=== PATIENT | male | born 1940 | race American Indian/Alaskan Native ===

== ENCOUNTER 2019-05-23 11:14 | Day surgery (SDC) | payer MEDICARE, OTHER, SELFPAY ==
[2019-05-23 12:11] VITALS: BP 152/75; RESP 71; TEMP 36.2; O2SAT 16; BMI 32.8
--- NOTE | 2019-05-23 12:36 | PM.PREOP ---
Pre-operative Note Interval Note History & Physical reviewed/Exam performed by Physician: No Changes to H&P: No
--- NOTE | 2019-05-23 12:36 | PM.OP.1 ---
Operative Date/Time/Diagnoses Date of procedure: 05/23/19 Pre-op diagnosis: Dermatochalasis both upper lids Post-op diagnosis: same Procedure & Clinicians Procedure: Blepharoplasty both upper lids Anesthesia Type: MAC +/- Operative Notes Procedure in detail: The patient was brought to the operating room. A marking pen and calipers were used to luba the excess skin on both upper lids. The patient underwent IV sedation. 5ml of a mixture of 1% lidocaine with epinephrine, bupivicane, and hylenx as injected into both upper lids. The patient was prepped and draped in sterile manor. A 15 blade was used to excise the skin/orbicularis layer from the right upper lid. The fat was allowed to prolapse and this was excised. Bleeding was controlled with cautery. A running and interupted 6-0 vicryl suture was used to close the incision. The same procedure was done on the left upper lid. The patient tolerated the procedure well and left in excellent condition. Complications: none
--- NOTE | 2019-05-23 12:41 | P.OP_ITS ---
Operative Date/Time/Diagnoses Date of procedure: 05/23/19 Pre-op diagnosis: Dermatochalasis both upper lids Post-op diagnosis: same Procedure & Clinicians Procedure: Blepharoplasty both upper lids Anesthesia Type: MAC +/- Operative Notes Procedure in detail: The patient was brought to the operating room. A marking pen and calipers were used to luba the excess skin on both upper lids. The patient underwent IV sedation. 5ml of a mixture of 1% lidocaine with epinephrine, bupivicane, and hylenx as injected into both upper lids. The pat ient was prepped and draped in sterile manor. A 15 blade was used to excise the skin/orbicularis layer from the right upper lid. The fat was allowed to prolapse and this was excised. Bleeding was controlled with cautery. A running and interupted 6-0 vicryl suture was used to close the incision. The same procedure was done on the left upper lid. The patient tolerated the procedure well and left in excellent condition. Complications: none
--- NOTE | 2019-05-23 13:09 | SUR.OPER ---
Supine on eye stretcher, head on extension cradle. Arms tucked at sides. Pillow under knees.
[2019-05-23] MEDS: BUPIVACAINE 0.5% (PF) 5 ML, LIDOCAINE 1% W/EPI 5 ML, HYALURONIDASE 150 UNIT INJ (13:13)
[2019-05-23] MEDS: NEOMYCIN/POLY/BACITRACIN 3.5 GM OPHTH OINT 1 APPLIC EYE-BOTH (13:14)
[2019-05-23 13:35] VITALS: BP 149/74; PULSE 69; RESP 16; TEMP 36.4; O2SAT 95
== END 2019-05-23 14:05 | disposition home or self-care (01) ==
PROVIDERS: PCP Family Medicine; Visit Provider Ophthalmology
PROC: (CPT 15823; principal; 2019-05-23 13:15)
DX: H02.834 Dermatochalasis of left upper eyelid (principal); H02.831 Dermatochalasis of right upper eyelid
CPT/HCPCS: 15823; J3010; J3470

== ENCOUNTER → 2019-08-01 15:03 | Outpatient (CLI) | payer MEDICARE, OTHER, SELFPAY ==
--- NOTE | 2019-08-01 | DI.RAD.S_ITS ---
PROCEDURE: XR SHOULDER LT MIN 2V INDICATIONS: Impingement syndrome of left shoulder TECHNIQUE: 3 views of the shoulder were acquired. COMPARISON: [facility], , CHEST 2 VIEW, 08/06/2017, 21:48. [facility], , CHEST 2 VIEW, 02/01/2018, 10:54. FINDINGS: Bones: Chronic left clavicle fracture. No acute fracture. Moderate AC joint degeneration. Glenohumeral degenerative changes also seen. Soft tissues: No suspicious soft tissue calcifications. IMPRESSION: Moderate AC joint degeneration which is likely progressed since 08/06/17. Glenohumeral osteoarthritis. Dictated by: Aram Fenton M.D. on 08/01/2019 at 16:10 Approved by: Aram Fenton M.D. on 08/01/2019 at 16:12
== END ==
PROVIDERS: PCP Family Medicine; Visit Provider Family Medicine
DX: M75.42 Impingement syndrome of left shoulder (principal); M19.012 Primary osteoarthritis, left shoulder
CPT/HCPCS: 73030

== ENCOUNTER → 2019-08-28 12:35 | Outpatient (CLI) | payer MEDICARE, OTHER, SELFPAY ==
--- NOTE | 2019-08-28 | DI.US.S_ITS ---
ULTRASOUND OF RIGHT BREAST: 08/28/2019 CLINICAL: Palpable right breast lump. No prior exams were available for comparison. Real-time ultrasound of the right breast was performed. Bowen scale images of the real-time examination were reviewed. No significant abnormalities were seen sonographically in the right breast. Specifically, no finding to correspond to the patient's palpable abnormality. IMPRESSION: INCOMPLETE: NEEDS ADDITIONAL IMAGING EVALUATION There is no abnormality seen in the right breast to correspond with the palpable abnormality at 1 o'clock, however, additional imaging with mammography is recommended. Findings and recommendations were conveyed to the patient at time of exam. This exam was interpreted at Station ID: [id number]. Electronically Signed By: Daniella strauss/:08/28/2019 13:09:21 letter sent: Additional Imaging Needed Ultrasound BI-RADS: 0 Indeterminate
== END ==
PROVIDERS: PCP Family Medicine; Visit Provider Family Medicine
DX: R22.2 Localized swelling, mass and lump, trunk (principal)
CPT/HCPCS: 76642

== ENCOUNTER → 2019-09-04 08:16 | Outpatient (CLI) | payer MEDICARE, OTHER, SELFPAY ==
--- NOTE | 2019-09-04 | DI.MG.S_ITS ---
MALE BILATERAL DIGITAL DIAGNOSTIC MAMMOGRAM 3D/2D: 09/04/2019 CLINICAL: Right breast lump. Comparison is made to exam dated: 08/28/2019 [facility]. There are benign normal lymph nodes in the right axilla. No significant masses, calcifications, or other findings are seen in either breast. IMPRESSION: There is no mammographic evidence of malignancy. Recent ultrasound dated 08/28/19 showed no sonographic abnormalities in the palpable area of concern. There is no abnormality seen in the right breast to correspond with the area of clinical concern and palpable abnormality indicated by triangular marker. Recommend clinical follow up for continued symptomatology. This exam was interpreted at Station ID: [id number]. NOTE: For mammograms, a report in lay terms will be sent to the patient. Approximately 15% of breast malignancies will not be visualized mammographically. In the management of a palpable breast mass, a negative mammogram must not discourage biopsy of a clinically suspicious lesion. Electronically Signed By: Gustavo Johnson M.D. aty/:09/04/2019 09:23:28 ACR BI-RADS Category 2: Benign Finding(s) [id number]
== END ==
PROVIDERS: PCP Family Medicine; Visit Provider Family Medicine
DX: N63.13 Unspecified lump in the right breast, lower outer quadrant (principal)
CPT/HCPCS: 77066; G0279

== ENCOUNTER → 2019-09-08 10:18 | Outpatient (CLI) | payer MEDICARE, OTHER, SELFPAY ==
--- NOTE | 2019-09-08 | DI.RAD.S_ITS ---
PROCEDURE: FL BARIUM SWALLOW INDICATIONS: COPD COMPARISON: [facility], CR, XR SHOULDER LT MIN 2V, 08/01/2019, 15:16. [facility], CR, CHEST 2 VIEW, 02/01/2018, 10:54. [facility], CT, ABDOMEN/PELVIS WITH CONTRAST, 03/03/2017, 10:19. [facility], RF, BARIUM SWALLOW, 08/27/2017, 13:41. FINDINGS: Function: There is normal esophageal peristalsis. No directly visualized gastroesophageal reflux on this exam. There is normal transit of a calibrated barium tablet through the esophagus into the stomach. Morphology: Air-contrast images demonstrate normal mucosal morphology. 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 Single contrast views show no other esophageal strictures, extrinsic mass effects, or diverticula. There is a possible small/minimal hiatal hernia. Limited images of the stomach demonstrate an otherwise unremarkable appearance. Surgical clips project over the upper abdomen. IMPRESSION: 1. 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 However, no direct gastroesophageal reflux was visualized on the current exam. Clinical correlation suggested. 2. Possible small/minimal hiatal hernia. Dictated by: Zain Ramírez M.D. on 09/08/2019 at 15:15 Approved by: Zain Ramírez M.D. on 09/08/2019 at 15:34
--- NOTE | 2019-09-08 | DI.RAD.S_ITS ---
PROCEDURE: XR CERVICAL SPINE 2V OR 3V INDICATIONS: OROPHARYNGEAL TECHNIQUE: 3 view(s) of the cervical spine were acquired. COMPARISON: None. FINDINGS: Bones: No fractures or dislocations to the C6-7 level. The lateral masses of C1 appear intact on the odontoid view. No suspicious bony lesions. There is straightening of normal cervical curvature. Moderate disc space narrowing is present C5-6. Soft tissues: No prevertebral soft tissue swelling. IMPRESSION: Degenerative changes with nonvisualization of the lower cervical spine. Dictated by: Sanaz Sierra M.D. on 09/08/2019 at 16:12 Approved by: Sanaz Sierra M.D. on 09/08/2019 at 16:13
--- NOTE | 2019-09-12 15:28 | P.PFT.S_ITS ---
Pulmonary Function Test Referral & Results Date Patient Seen: 09/08/19 Requesting provider: Kelli Valentine Indication: COPD Results: The spirometry demonstrates an FVC of 4.10 L which is 99% of predicted. The FEV1 was measured at 2.63 L which is 89% of predicted. The FEV1/FVC ratio was 60 for which is 89% of predicted. Following the administration of bronchodilator there was no appreciable change. Lung volumes show an SVC of 4.26 L which is 94% of predicted. The diffusing capacity was measured at 26.15 which is 79% of predicted. The maximum voluntary ventilation was normal Interpretation: This study demonstrates very mild obstructive lung disease based on slight reduction FEV1 and shape a flow volume loop. There is no evidence of sign ificant benefit following bronchodilator There also may be a mild reduction in diffusing capacity Compared to PFTs performed in September 2017, current study is essentially unchanged
== END ==
PROVIDERS: PCP Family Medicine; Visit Provider Family Medicine
DX: J41.0 Simple chronic bronchitis (principal); R13.12 Dysphagia, oropharyngeal phase
CPT/HCPCS: 72040; 74220; 94060; 94726; 94729

== ENCOUNTER → 2020-07-30 09:14 | Outpatient (CLI) | payer MEDICARE, OTHER, SELFPAY ==
--- NOTE | 2020-07-30 | DI.ECHO.S_ITS ---
[place] +---------+ [facility] +---------+ : : [address] : : : : [id number] : : : : Phone: [phone]+ Echocardiogram Report + + :Name: YAZMIN RUIZ Study Date: 07/30/2020 Height: 71 in : :[facility] Weight: 231 lb : : Gender: Male BSA: 2.2 m2 : :: 1940 Age: 80 yrs BP: 176/85 mmHg: :Reason For Study: SHORTNESS OF BREATH : :Ordering Physician: BOB, : :SAKINA Performed By: Gunjan Wright : :Referring: SAKINA ROJAS : + + Interpretation Summary 1) Normal left ventricular thickness, size, wall motion, and systolic function (EF 60-65%). 2) The right ventricle is normal in size and function. 3) Diastolic parameters suggest a pseudonormalization pattern, consistent with probable elevated filling pressures. 4) There is mild mitral regurgitation. 5) There is mild aortic regurgitation. 6) Pulmonary artery pressures cannot be estimated because of the lack of a measurable TR jet velocity. 7) Hypertension present during the study (BP 176/85mmHg). 8) No prior Echo available for comparison. Procedure: A two-dimensional transthoracic echocardiogram with color flow and Doppler was performed. The study quality was technically adequate. The patient had an echocardiogram, but there is no comparison study available. The patient was in sinus rhythm with heart rates between 58-63 bpm during the exam. Left Ventricle: The left ventricle is normal in size and wall thickness. The ejection fraction is estimated to be 60-65%. Left ventricular systolic function is normal without focal wall motion abnormalities. Diastolic parameters suggest a pseudonormalization pattern, consistent with probable elevated filling pressures. Right Ventricle: The right ventricle is normal in size and function. Atria: The left atrium is moderately dilated. Right atrial size is normal. There is no Doppler evidence for an interatrial shunt. Mitral Valve: The mitral valve leaflets appear mildly thickened, but open well. There is mild mitral regurgitation. There are multiple regurgitant jets present. Aortic Valve: The aortic valve is trileaflet. The aortic valve opens well. There is no aortic valve stenosis. There is mild aortic regurgitation. Tricuspid Valve: The tricuspid valve is normal in structure and function. There is trace tricuspid regurgitation. Pulmonary artery pressures cannot be estimated because of the lack of a measurable TR jet velocity. Pulmonic Valve: The pulmonic valve is not well seen, but is grossly normal. There is moderate pulmonic regurgitation. Great Vessels: The aortic root is normal size. The ascending aorta is at the upper limits of normal in size. The IVC is of normal diameter and collapses greater than 50% with a sniff. This suggests a low right atrial pressure of 3 mm Hg. Pericardium/ Pleura There is no pericardial effusion. There is no pleural effusion. MMode/2D Measurements & Calculations LVIDd: 5.3 cm LVOT diam: 2.3 cm LVIDs: 3.4 cm Ao root diam: 2.9 cm FS: 35.6 % asc Aorta Diam: 3.5 cm IVSd: 0.88 cm Ao Arch Diam (Prox Trans): 3.7 cm LVPWd: 1.0 cm LV maldonado. diameter/BSA (cm/m^2): 2.4 LV sys. diameter/BSA (cm/m^2): 1.5 LA A2 area: 29.5 cm2 RA long axis: 5.7 cm LA A4 area: 23.7 cm2 RA area: 21.3 cm2 LA length (vol): 5.8 cm RA vol: 66.8 ml LA vol: 102.8 ml RA : 29.8 ml/m2 LA vol index: 45.9 ml/m2 IVC diam: 0.84 cm RVD1 (basal): 3.8 cm TAPSE: 2.2 cm Doppler Measurements & Calculations Ao V2 max: 123.4 cm/sec LVOT Max Elgin: 73.8 cm/sec Ao V2 mean: 85.9 cm/sec LV V1 max P.2 mmHg Ao max P.1 mmHg LV V1 VTI: 18.1 cm Ao mean P.3 mmHg EMMA(I,D): 2.9 cm2 Ao V2 VTI: 27.1 cm EMMA(V,D): 2.5 cm2 sev ratio: 0.67 EMMA indexed to BSA (cm^2/m^2): 1.3 AI P1/2t: 691.0 msec AI dec slope: 148.7 cm/sec2 MV E max elgin: 86.0 cm/sec PA V2 max: 70.5 cm/sec MV A max elgin: 111.3 cm/sec PA V2 mean: 44.2 cm/sec MV E/A: 0.77 PA mean P.94 mmHg Med Peak E' Elgin: 4.6 cm/sec PA pr(Accel): 25.9 mmHg E/E' med: 18.7 Lat Peak E' Elgin: 7.6 cm/sec E/E' lat: 11.3 E/e' average: 15.0 MV dec time: 0.32 sec SV(LVOT): 77.3 ml Reading Physician:05:44 PM
== END ==
PROVIDERS: PCP Family Medicine; Referring Provider Family Medicine; Visit Provider Family Medicine
DX: I08.0 Rheumatic disorders of both mitral and aortic valves (principal); R06.02 Shortness of breath
CPT/HCPCS: 93306

== ENCOUNTER → 2020-08-17 09:03 | Outpatient (CLI) | payer MEDICARE, OTHER, SELFPAY ==
[2020-08-17 10:44] LABS: Alanine Aminotransferase 22 IU/L (<50); Albumin 4.4 g/dL (3.5-5.0); Albumin Globulin Ratio 1.4 (1.0-2.8); Alkaline Phosphatase 133 U/L (38-126); Aspartate Aminotransferase 27 IU/L (17-59); BUN Creatinine Ratio 18.2 (6-22); Bilirubin Total 0.7 mg/dL (0.2-1.3); Blood Urea Nitrogen 18 mg/dL (9-20); Calcium 8.8 mg/dL (8.4-10.2); Carbon Dioxide 30 mmol/L (22-32); Chloride 108 mmol/L (98-107); Cholesterol 102 mg/dL (140-199); Estimated Glomerular Filt Rate > 60.0 mL/min (>60); Globulin 3.2 g/dL (1.7-4.1); Glucose 112 mg/dL (80-110); HDL Cholesterol 38 mg/dL (40-60); HEMOLYSIS < 15 (0-50); LDL Cholesterol Calculated 44 mg/dL (<100); Potassium 4.1 mmol/L (3.4-5.1); Sodium 142 mmol/L (137-145); Total Protein 7.6 g/dL (6.3-8.2); Triglycerides 99 mg/dL (35-150)
[2020-08-17 11:20] LABS: Thyroid Stimulating Hormone 1.05 uIU/mL (0.47-4.68)
== END ==
PROVIDERS: PCP Family Medicine; Referring Provider Nurse Practitioner; Visit Provider Nurse Practitioner
DX: R00.2 Palpitations (principal); R07.89 Other chest pain; R06.02 Shortness of breath
CPT/HCPCS: 36415; 80053; 80061; 84443

== ENCOUNTER → 2020-08-25 09:12 | Outpatient (CLI) | payer MEDICARE, OTHER, SELFPAY ==
[2020-08-26 12:35] LABS: COVID19 Sendout Not Detected (Not Detect)
== END ==
PROVIDERS: PCP Family Medicine; Visit Provider Physician Assistant
DX: Z11.59 Encounter for screening for other viral diseases (principal)
CPT/HCPCS: 87635

== ENCOUNTER → 2020-08-28 07:25 | Outpatient (CLI) | payer MEDICARE, OTHER, SELFPAY ==
--- NOTE | 2020-08-28 | DI.NM.S_ITS ---
PROCEDURE: NM JENS PERF SPECT REST & STR Rest and pharmacological stress myocardial perfusion SPECT with gated imaging and ejection fraction RADIOPHARMACEUTICAL: 15.2 mCi Tc-99m tetrafosmin IV at rest and 26.4 mCi Tc-99m tetrafosmin IV at peak effect of pharmacological stress. [id number] was performed. INDICATIONS: Palpitations TECHNIQUE: Radiopharmaceutical was injected at peak stress test, and also at rest. SPECT images were obtained. SPECT myocardial perfusion images were displayed in short axis, horizontal long axis, and vertical long axis views. Gated images were reviewed using OnForce software. COMPARISON: None. CARDIAC STRESS: Patient exercised for 6 minutes and 12 seconds, reaching 4.6 METs. Since only 79% max predicted heart rate was reached, study was switched to pharmaceutical stress. A pharmacologic stress test was performed under the supervision of an attending staff, using an infusion of lexiscan 0.4mg IV X1. Hemodynamic data: There is normal blood pressure and heart rate response to pharmacologic stress. Symptoms: The patient denied anginal chest pain. Aminophylline: none EKG: Resting ECG shows sinus rhythm with RBBB. No ST-T changes to suggest ischemia. Occasoinal PVCs with exercise. FINDINGS: Raw data: There is good myocardial uptake of radiotracer. No significant motion artifacts. Kytf-lq-arbgt ratio is 0.31 (normal is less than 0.38 for tetrafosmin tracer). Left ventricle function: Gated images demonstrate normal left ventricular wall thickening. No segmental wall motion abnormalities. No transient ischemic dilation; TID is 0.91 (normal less than 1.3). Left ventricle resting end diastolic volume is 126 mL. Left ventricle stress ejection fraction is 63%; normal range is above 45%. Myocardial perfusion: There is severely intense defect in the inferior wall at rest that improves with stress supine images and further improves with stress prone imaging, suggesting artifact than true prior infarct or ischemia. IMPRESSION: Low risk, probably normal pharmaceutical nuclear stress test. 1) No perfusion evidence of ischemia. There is severely intense defect in the inferior wall at rest that improves with stress supine images and further improves with stress prone imaging, suggesting artifact than true prior infarct. 2) Normal left ventricular size, wall motion, and systolic function (EF post stress 63%). 3) No ECG evidence of ischemia. 4) No angina during the study. 5) Reduced exercise tolerance (4.6 METs, SONIA +22%). Since only 79% of max predicted heart rate was achieved, study was switched to pharmaceutical nuclear stress test. 6) No prior nuclear stress test available for comparison. Dictated by: Joana Castellano MD on 08/28/2020 at 17:14 Approved by: Joana Castellano MD on 08/28/2020 at 17:19
--- NOTE | 2020-08-28 15:15 | PM.TREADMILL ---
Cardiac Stress Test Report Referral & Results Date Patient Seen: 08/28/20 Time Patient Seen: 15:15 Requesting provider: Koko Madrigal Indication: palpitations Rest ECG: sinus rhythm with rbbb Procedure Note: Standard anup protocol, 3:34, 4.6 METS Reduced exercise capacity, SONIA, +22% Normal hemodynamic response to exercise No chest pain or angina symptoms. Test changed to Lexiscan due to dyspnea and failure to achieve target HR After Lexiscan injection had minimal dyspnea; no chest discomfort No significant ST changes on EKG after Lexsican injection; occasional PVCs Impression: normal lexiscan stress test Nuclear images pending Please note: Actual ECG tracings can be found in the PACS system.
== END ==
PROVIDERS: PCP Family Medicine; Referring Provider Family Medicine; Visit Provider Nurse Practitioner
DX: R00.2 Palpitations (principal); R07.89 Other chest pain
CPT/HCPCS: 78452; 93017; A9502; J2785

== ENCOUNTER → 2020-12-10 10:28 | Outpatient (CLI) | payer MEDICARE, OTHER, SELFPAY ==
--- NOTE | 2020-12-10 10:32 | DI.RAD.S_ITS ---
PROCEDURE: XR HIP W PEL IF DONE RT 2V INDICATIONS: OSTEOPOROSIS TECHNIQUE: AP pelvis with lateral view(s) of the right hip(s). COMPARISON: None. FINDINGS: Bones: No fractures or dislocations. Pelvic ring appears intact. No suspicious bony lesions. Moderate hip and sacroiliac joint degeneration is bilaterally. There is ankylosis of the right sacroiliac joint. Soft tissues: The visualized bowel gas pattern is normal. No suspicious soft tissue calcifications. IMPRESSION: 1. Moderate hip and sacroiliac joint degeneration bilaterally. 2. Right SI joint ankylosis. Dictated by: Luzmaria García M.D. on 12/10/2020 at 12:46 Approved by: Luzmaria García M.D. on 12/10/2020 at 12:49
--- NOTE | 2020-12-10 10:32 | DI.RAD.S_ITS ---
PROCEDURE: XR SHOULDER LT MIN 2V INDICATIONS: OSTEOPOROSIS TECHNIQUE: 3 views of the shoulder were acquired. COMPARISON: [facility], CR, XR SHOULDER LT MIN 2V, 08/01/2019, 15:16. FINDINGS: Bones: No acute fractures or dislocations. Old clavicular shaft fracture with deformity. No suspicious bony lesions. Mild osteoarthritic changes at the acromioclavicular joint and glenohumeral joint. Visualized ribs appear intact. Soft tissues: No suspicious soft tissue calcifications. IMPRESSION: 1. Old left clavicular shaft fracture. 2. Mild osteoarthritis. Dictated by: Luzmaria García M.D. on 12/10/2020 at 12:29 Approved by: Luzmaria García M.D. on 12/10/2020 at 12:46
== END ==
PROVIDERS: PCP Family Medicine; Referring Provider Family Medicine; Visit Provider Family Medicine
DX: M19.012 Primary osteoarthritis, left shoulder (principal); M81.0 Age-related osteoporosis without current pathological fracture; M16.0 Bilateral primary osteoarthritis of hip; M46.1 Sacroiliitis, not elsewhere classified; M43.28 Fusion of spine, sacral and sacrococcygeal region
CPT/HCPCS: 73030; 73502

== ENCOUNTER → 2021-09-11 16:18 | Outpatient (CLI) | payer MEDICARE, OTHER, SELFPAY ==
[2021-09-11 17:01] LABS: COVID19 -Nasal RAPID Negative (Negative)
== END ==
PROVIDERS: PCP Family Medicine; Referring Provider Internal Medicine; Visit Provider Internal Medicine
DX: Z20.822 Contact with and (suspected) exposure to COVID-19 (principal)
CPT/HCPCS: 87635; C9803

== ENCOUNTER → 2021-09-12 12:48 | Outpatient (CLI) | payer MEDICARE, OTHER, SELFPAY ==
--- NOTE | 2021-09-17 09:18 | PM.PFT.1 ---
Pulmonary Function Test Referral & Results Date Patient Seen: 09/12/21 Requesting provider: Kelli Valentine Results: The spirometry demonstrates an FVC of 4.16 L which is 102% of predicted. The FEV1 was measured at 2.41 L which is 83% of predicted. The FEV1/FVC ratio was 58 which is 81% of predicted. Lung volumes show an SVC of 4.21 L which is 94% of predicted. The diffusing capacity was measured at 23.50 which is 71% of predicted. No hemoglobin value was provided, so no correction for potential anemia could be made, if appropriate. The maximum voluntary ventilation was reduced Interpretation: This study demonstrates perhaps mild obstructive lung disease based on minimal reduction FEV1 and FEV1/FVC ratio. There is also mild reduction diffusing capacity suggesting element of disease at the capillary alveolar level, unless patient is anemic as above Clinical correlation suggested
== END ==
PROVIDERS: PCP Family Medicine; Referring Provider Family Medicine; Visit Provider Family Medicine
DX: J45.20 Mild intermittent asthma, uncomplicated (principal)
CPT/HCPCS: 94010; 94726; 94729

== ENCOUNTER 2021-12-02 06:40 | Emergency (ER) | payer MEDICARE, OTHER, SELFPAY ==
--- NOTE | 2021-12-02 06:41 | DI.RAD.S_ITS ---
PROCEDURE: XR CHEST 1V INDICATIONS: SOB, COVID+ TECHNIQUE: One view of the chest was acquired. COMPARISON: None. FINDINGS: Surgical changes and devices: None. Lungs and pleura: Mildly increased interstitial markings in the central/perihilar lungs. No acute airspace opacity. No pleural effusions or pneumothorax. Mediastinum: Mediastinal contours appear normal. Heart size is normal. Bones and chest wall: No suspicious bony lesions. Overlying soft tissues appear unremarkable. IMPRESSION: Mildly increased interstitial markings in the central/perihilar lungs. This is a nonspecific finding which can be seen in the setting of viral infection or pulmonary edema. Dictated by: Kory Leary M.D. on 12/02/2021 at 8:08 Approved by: Kory Leary M.D. on 12/02/2021 at 8:08
[2021-12-02 06:45] VITALS: BP 149/67; PULSE 89; RESP 18; TEMP 37.2; O2SAT 94; BMI 32.8
[2021-12-02 06:57] VITALS: PULSE 86; O2SAT 93
[2021-12-02 07:00] VITALS: BP 134/60; PULSE 86; O2SAT 92
[2021-12-02 07:30] VITALS: BP 135/63; PULSE 85; O2SAT 94
[2021-12-02 08:00] VITALS: BP 130/63; PULSE 85; O2SAT 94
--- NOTE | 2021-12-02 08:13 | ED.GENADULT ---
HPI - General Adult General Chief complaint: Shortness of Breath/Dyspnea Stated complaint: + Covid / Shortness of breath Time Seen by Provider: 12/02/21 06:41 Source: patient Mode of arrival: EMS History of Present Illness HPI narrative: Patient is an 81-year-old male. 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 No use of oxygen at night. Has had 2 Moderna vaccines and also a booster. His booster was a couple months ago. He states that last he started having flu-like symptoms. He was tested on Wednesday for COVID and was negative. He continued to have symptoms and was worsening somewhat so he tested again yesterday afternoon and a was positive. Last evening he was having fevers and chills and headache and flu-like symptoms so he decided to come to the emergency department for evaluation. Related Data Home Medications Medication Instructions Recorded Confirmed acetaminophen 650 mg 650 mg PO BIDP PRN #0 tab 08/10/16 05/23/19 tablet,extended release aspirin 81 mg tablet,delayed 81 mg PO QDAY #30 tab 08/10/16 05/23/19 release vitamins A,C,L-dleq-yuknqf 14,320 1 sgl PO EVERY OTHER DAY #0 08/12/16 unit-226 mg-200 unit capsule (PreserVision AREDS) fluticasone propionate 50 2 spray INTRANASAL QDAY #0 04/13/17 05/23/19 mcg/actuation nasal spray,suspension loratadine 10 mg tablet 10 mg PO QDAY #0 04/13/17 05/23/19 simvastatin 20 mg tablet 20 mg PO HS #0 04/13/17 05/23/19 Vitamin D2 05/23/19 omeprazole 20 mg capsule,delayed 20 mg PO DAILY 05/23/19 05/23/19 release Allergies Allergy/AdvReac Type Severity Reaction Status Date / Time ketchup Allergy Mild Itchy Verified 05/23/19 12:00 peanut Allergy Mild Itchy Verified 05/23/19 12:00 Penicillins [PENICILLINS] Allergy Unknown ITCHY DRY Verified 05/23/19 12:00 RECTUM Sulfa (Sulfonamide Allergy Unknown ITCHY, DRY Verified 05/23/19 12:00 Antibiotics) RECTUM [SULFA (SULFONAMIDE ANTIBIOTICS)] EGGS Allergy Intermediate ITCHY SKIN Uncoded 04/11/18 12:52 canned foods Allergy Mild Itchy Uncoded 05/23/19 12:00 tape Allergy Itchy, red Uncoded 05/23/19 12:00 Review of Systems Constitutional Constitutional: Reports body ache(s), Reports chills, Reports fatigue, Reports fever(s) and Reports lethargy Cardiovascular Cardiovascular: Denies chest pain Respiratory Respiratory: Reports cough Gastrointestinal Gastrointestinal: Reports system reviewed and no additional complaints, except as documented Integumentary/Breasts Skin/Breast: Reports system reviewed and no additional complaints, except as documented Neurologic Neurologic: Reports system reviewed and no additional complaints, except as documented Endocrine Endocrine: Reports fatigue Hematologic/Lymphatic On Anticoagulants: No Allergic/Immunologic Allergic/Immunologic: Reports system reviewed and no additional complaints, except as documented Patient History Medical History Allergy desensitization therapy Arthritis Cataract fragments in right eye following surgery Cyst (~03/2019) Gastric reflux History of gallstones History of headache (~2017) History of shingles Irregular heart beat Legally blind in left eye, as defined in [place] Macular degeneration Seasonal allergies Surgical History (Updated 05/23/19 @ 12:30 by Maribel Ford RN) H/O sinus surgery H/O umbilical hernia repair History of appendectomy History of eye surgery History of inguinal hernia repair, bilateral Social History household members: spouse Smoking Status: Former smoker Smoking Status: Former smoker Substance Use Type: does not use Exam Initial Vital Signs Initial Vital Signs: Vital Signs Temperature 98.9 F 12/02/21 06:45 Pulse Rate 89 12/02/21 06:45 Respiratory Rate 18 12/02/21 06:45 Blood Pressure 149/67 H 12/02/21 06:45 Pulse Oximetry 94 12/02/21 06:45 Const General: cooperative, comfortable and well developed Resp Effort & Inspection: normal respiratory effort Auscultation: clear to auscultation bilaterally Cardio Rate: regular rate Rhythm: regular rhythm Skin General: no rashes or lesions noted Neuro General: patient alert, patient awake and moves all extremities Extrem General: No pedal edema Psych Appearance: grossly normal and well kempt Course Orders Ordered: ED Orders 12/02/21 06:41 Chest [XR chest 1V] Stat Vital Signs Vital signs: Vital Signs - 8 hr 12/02/21 06:45 12/02/21 06:57 12/02/21 07:00 Temperature 98.9 F Pulse Rate 89 86 86 Respiratory Rate 18 Blood Pressure 149/67 H 134/60 Pulse Oximetry 94 93 92 12/02/21 07:30 12/02/21 08:00 Temperature Pulse Rate 85 85 Respiratory Rate Blood Pressure 135/63 130/63 Pulse Oximetry 94 94 Medical Decision Making Imaging Data Chest x-ray: Radiologist's Impression: [address] [address] XRay Report Signed Patient: Jatin Cruz MR#: [id number] : 1940 Acct:[id number] Age/Sex: 81 / M Date of Service: 12/02/21 Loc: ED Accession Number: [id number] ?? Procedure: XR chest 1V Ordering Provider: Elijah iL D.O. PROCEDURE:? XR CHEST 1V ? INDICATIONS:? SOB, COVID+ ? TECHNIQUE:? One view of the chest was acquired.? ? COMPARISON:? None. ? FINDINGS:? ? Surgical changes and devices:? None.? ? Lungs and pleura:? Mildly increased interstitial markings in the central/perihilar lungs. ?No acute airspace opacity.? No pleural effusions or pneumothorax.? ? Mediastinum:? Mediastinal contours appear normal.? Heart size is normal.? ? Bones and chest wall:? No suspicious bony lesions.? Overlying soft tissues appear unremarkable.? ? IMPRESSION:? Mildly increased interstitial markings in the central/perihilar lungs.? This is a nonspecific finding which can be seen in the setting of viral infection or pulmonary edema. ? ? Dictated by: Kory Leary M.D. on 12/02/2021 at 8:08 ? ? Approved by: Kory Leary M.D. on 12/02/2021 at 8:08? MDM Narrative Medical decision making narrative: Patient is not hypoxic. Not tachypneic. Not tachycardic. Has a clear lung exam. Is positive for COVID based on a test that was performed yesterday at an outside clinic. Patient has had 2 vaccines and a booster shot. Chest x-ray consistent with COVID-19. Patient not requiring oxygen. Provided reassurance to the patient. We did discuss Tylenol for fevers and body aches. Patient does not meet criteria for admission to the hospital today however he was given strict return precautions. He expressed understanding and agreement. Discharge Plan Departure Patient Disposition: Home Clinical Impression: COVID-19 Instructions: DI for COVID-19 (Suspected or Confirmed ) Activity Restrictions/Additional Instructions: I do recommend that you increase your fluid intake. Continue to take all of your medications as directed. Contact your primary doctor for follow-up and return to the emergency department for any new or worsening symptoms. Prescriptions: No Action aspirin 81 MG tablet,delayed release (DR/EC) 81 mg PO QDAY Qty: 30 0RF acetaminophen 650 MG tablet extended release 650 mg PO BIDP PRN (Reason: Pain) Qty: 0 0RF PreserVision AREDS 1 EACH capsule 1 sgl PO EVERY OTHER DAY Qty: 0 0RF loratadine 10 MG tablet 10 mg PO QDAY Qty: 0 0RF simvastatin 20 MG tablet 20 mg PO HS Qty: 0 0RF fluticasone propionate 16 GM spray,suspension 2 spray Intranasal QDAY Qty: 0 0RF omeprazole 20 mg Capsule,Delayed Release(Dr/Ec) 20 mg PO DAILY 0RF Vitamin D2 0RF Referrals: Kelli Valentine MD [Primary Care Provider] -
[2021-12-02 09:19] VITALS: BP 141/65; PULSE 74; RESP 17; O2SAT 95
== END 2021-12-02 09:21 | disposition home or self-care (01) ==
PROVIDERS: Emergency Provider Emergency Medicine; PCP Family Medicine
DX: U07.1 COVID-19 (principal)
CPT/HCPCS: 71045; 99281; 99283

== ENCOUNTER → 2022-01-01 12:47 | Outpatient (CLI) | payer MEDICARE, OTHER, SELFPAY ==
[2022-01-01 14:17] LABS: COVID-19 CEPHEID PCR (VTM/NP) Negative (Negative)
== END ==
PROVIDERS: PCP Family Medicine; Referring Provider Internal Medicine; Visit Provider Internal Medicine
DX: Z20.822 Contact with and (suspected) exposure to COVID-19 (principal)
CPT/HCPCS: C9803; U0003; U0005

== ENCOUNTER → 2022-01-02 12:45 | Outpatient (CLI) | payer MEDICARE, OTHER, SELFPAY ==
--- NOTE | 2022-01-07 09:14 | PM.PFT.1 ---
Pulmonary Function Test Referral & Results Date Patient Seen: 01/02/22 Requesting provider: Kelli Valentine Results: The spirometry demonstrates an FVC of 3.84 L which is 94% of predicted. The FEV1 was measured at 2.19 L which is 76% of predicted. The FEV1/FVC ratio was 57 which is 80% of predicted. Lung volumes show an SVC of 4.14 L which is 93% of predicted. The diffusing capacity was measured at 25.13 which is 76% of predicted. No hemoglobin value was provided, so no correction for potential anemia could be made, if appropriate. The maximum voluntary ventilation was reduced slightly Interpretation: This study demonstrates perhaps very mild obstructive lung disease based on minimal reduction FEV1 and borderline minimal reduction FEV1/FVC ratio. Lung volumes are normal Diffusing capacity is minimally reduced suggesting the possibility of disease at the capillary alveolar level Compared to PFTs performed in September 2021, current study is essentially unchanged
== END ==
PROVIDERS: PCP Family Medicine; Referring Provider Family Medicine; Visit Provider Family Medicine
DX: J44.9 Chronic obstructive pulmonary disease, unspecified (principal)
CPT/HCPCS: 94010; 94726; 94729

== ENCOUNTER 2022-05-07 14:15 | Outpatient (RCR) | payer MEDICARE, OTHER, SELFPAY | END 2022-05-07 16:15 | LOC: PUL 14:15 | PROVIDERS: PCP Family Medicine; Referring Provider Family Medicine; Visit Provider Family Medicine | DX: J44.9 Chronic obstructive pulmonary disease, unspecified (principal) | CPT/HCPCS: 94625; 94626 ==

== ENCOUNTER 2022-09-26 01:35 | Emergency (ER) | payer MEDICARE, OTHER, SELFPAY ==
[2022-09-26] VITALS (8 sets, daily range): BP systolic 132–165; BP diastolic 66–92; PULSE 85–91; RESP 16–28; TEMP 38.7; O2SAT 93–97; BMI 32.3
--- NOTE | 2022-09-26 01:42 | DI.RAD.S_ITS ---
PROCEDURE: XR CHEST 1V INDICATIONS: short of breath TECHNIQUE: One view of the chest was acquired. COMPARISON: [facility], CR, XR CHEST 1V, 12/02/2021, 7:34. FINDINGS: Surgical changes and devices: None. Lungs and pleura: There is hyperinflation of the lungs with flattening of the hemidiaphragms compatible with COPD. No acute consolidation. No pleural effusions or pneumothorax. Mediastinum: Mediastinal contours appear normal. Heart size is normal. Bones and chest wall: No suspicious bony lesions. Overlying soft tissues appear unremarkable. IMPRESSION: 1. No acute cardiopulmonary disease. 2. Findings compatible with COPD. Dictated by: French Morfin M.D. on 09/26/2022 at 2:13 Approved by: French Morfin M.D. on 09/26/2022 at 2:13
[2022-09-26 02:14] LABS: Alanine Aminotransferase 23 IU/L (<50); Albumin 4.1 g/dL (3.5-5.0); Albumin Globulin Ratio 1.2 (1.0-2.8); Alkaline Phosphatase 94 U/L (38-126); Aspartate Aminotransferase 25 IU/L (17-59); Bilirubin Total 0.7 mg/dL (0.2-1.3); Blood Urea Nitrogen 16 mg/dL (9-20); Calcium 7.8 mg/dL (8.4-10.2); Carbon Dioxide 22 mmol/L (22-32); Chloride 104 mmol/L (98-107); Creatine Kinase 88 U/L (55-170); Estimated Glomerular Filt Rate > 60 mL/min (>60); Globulin 3.4 g/dL (1.7-4.1); Glucose 155 mg/dL (80-110); HEMOLYSIS < 15 (0-50); Potassium 3.8 mmol/L (3.4-5.1); Sodium 137 mmol/L (137-145); Total Protein 7.5 g/dL (6.3-8.2)
[2022-09-26 02:15] LABS: Lactate (Lactic Acid) 1.1 mmol/L (0.7-2.1)
--- NOTE | 2022-09-26 02:18 | ED_ITS ---
HPI - Sepsis General Chief Complaint: Upper Respiratory Symptoms Mode of arrival: EMS Source: patient Evaluation Sepsis Screen: No Definite Risk Sepsis Infection Criteria Present: None Narrative: Patient is a 82-year-old male history of COPD, presenting today with body aches fevers and chills. He says ongoing for about a week but today got significantly worse. He overall does not feel good. He is currently febrile. He is having increasing shortness of breath a little bit of chest discomfort. He is coughing up sputum. Denies any abdominal pain but he does have some nausea. Review of Systems Review of Systems Narrative: GENERAL: See HPI HEENT: Denies sinus pain, ear pain, sore throat, difficulty swallowing, neck pain RESPIRATORY: See HPI CARDIOVASCULAR: Denies chest pain, palpitations, orthopnea, edema GASTROINTESTINAL: Denies nausea, vomiting, abdominal pain, diarrhea, co nstipation, melena. : Denies dysuria, frequency, incontinence, hematuria, urinary retention, flank pain. MUSCULOSKELETAL: Denies weakness, joint pain, or bony pain SKIN: No rash, no erythema, no pruritus NEUROLOGIC: Denies weakness, dizziness, headache, numbness, change in speech, confusion PSYCHIATRIC: No concerning psychosocial issues. 12 point review of systems is negative except for those stated above and HPI Patient History Medical History Allergy desensitization therapy Arthritis Cataract fragments in right eye following surgery Cyst (~03/2019) Gastric reflux History of gallstones History of headache (~2018) History of shingles Irregular heart beat Legally blind in left eye, as defined in [place] Macular degeneration Seasonal allergies Surgical History H/O sinus surgery H/O umbilical hernia repair History of appendectomy History of eye surgery History of inguinal hernia repair, bilateral Social History household members: spouse Smoking Status: Former smoker Smoking Status: Former smoker Substance Use Type: does not use Exam Initial Vital Signs Initial Vital Signs: Vital Signs Temperature 101.7 F H 09/26/22 01:41 Pulse Rate 90 09/26/22 01:41 Respiratory Rate 18 09/26/22 01:41 Blood Pressure 165/67 H 09/26/22 01:41 Pulse Oximetry 96 09/26/22 01:41 Oxygen Delivery Method 11/26/22 01:41 GENERAL: Alert 82-year-old male appears to not feel well warm to touch HEENT: Head atraumatic,EOMI, pupils reactive, face symmetric, moist mucous membranes CARDIOVASCULAR: Regular rate and rhythm without murmurs, rubs or gallops. RESPIRATORY: Decreased breath sounds bilaterally without wheezes rales or rhonchi able to speak in full sentences ABDOMEN: Soft, nontender. Normoactive bowel sounds all 4 quadrants. No g uarding or rebound. EXTREMITIES: Normal range of motion, no clubbing or edema. Neurovascularly inta ct NEUROLOGICAL: Alert and oriented x4.Normal gait and speech. SKIN: Warm, dry, no laceration, no petechiae, no rashes or lesions. Course Orders Ordered: ED Orders 09/26/22 01:42 XR chest 1V Stat EKG-12 Lead Stat 09/26/22 01:45 Covid-19 + FLU A/B + RSV - PCR Stat 09/26/22 01:52 Complete Blood Count AUTO DIFF Stat Comprehensive Metabolic Panel Stat Lactate (Lactic Acid) Stat NT-proBNP (BNP-Adult 18+) Stat Procalcitonin Stat Troponin & CK Cardiac Panel Stat 09/26/22 02:10 Blood Culture Stat Discontinued Medications Acetaminophen (Acetaminophen 325 Mg Tablet) 975 mg PO NOW ONE Stop: 09/26/22 02:15 Last Admin: 09/26/22 02:37 Dose: 975 mg Documented By: JACKELIN Albuterol/Ipratropium (Albuterol/Ipratropium 3 Ml Ampul) 3 ml INH NOW ONE Stop: 09/26/22 03:38 Last Admin: 09/26/22 03:52 Dose: 3 ml Documented By: SHAYLA Sodium Chloride (Normal Saline 0.9%) 1,000 mls @ 1,000 mls/hr IV BOLUS ONE Stop: 09/26/22 04:30 Last Admin: 09/26/22 03:53 Dose: 1,000 mls/hr Documented By: LYDIA Vital Signs Vital signs: Vital Signs - 8 hr 09/26/22 01:41 09/26/22 02:41 09/26/22 03:00 Temperature 101.7 F H Pulse Rate 90 86 85 Respiratory Rate 18 28 H 26 H Blood Pressure 165/67 H 156/69 H 145/66 H Pulse Oximetry 96 93 97 Oxygen Delivery Method Room Air Room Air Room Air Oxygen Flow Rate Fraction of Inspired Oxygen 09/26/22 03:53 09/26/22 03:30 09/26/22 04:00 Temperature Pulse Rate 87 86 86 Respiratory Rate 16 22 24 Blood Pressure 154/68 H 147/68 H Pulse Oximetry 96 97 97 Oxygen Delivery Method Room Air Room Air Room Air Oxygen Flow Rate 0 Fraction of Inspired Oxygen 21 09/26/22 04:30 09/26/22 05:00 Temperature Pulse Rate 90 91 H Respiratory Rate 24 20 Blood Pressure 161/69 H 132/92 H Pulse Oximetry 95 97 Oxygen Delivery Method Room Air Room Air Oxygen Flow Rate Fraction of Inspired Oxygen Sepsis Evaluation (ED) Triage Screening Sepsis Screen: No Definite Risk Level 1 - Infection Sepsis Infection Criteria Present: None Response It is my opinion that his patient have a likely infectious etiology for meeting sepsis criteria: Does Not Fluid calculation based on 30 mL/kg within 1hr of criteria: IBW used due to BMI>30 Antibiotics initiated within 1 hr of Sepis dx: No Tissue Perfusion Reassessed within 6 hrs of infusion start time: No MDM - Sepsis Lab Data Result diagrams: 09/26/22 01:52 09/26/22 01:52 Labs: Lab Results 09/26/22 09/26/22 09/26/22 Range/Units 01:45 01:52 01:52 WBC 8.3 (4.5-11.0) X10^3/uL RBC 4.70 (4.5-5.9) X10^6/uL Hgb 13.8 (13.5-17.5) g/dL Hct 40.1 L (41-53) % MCV 85.4 (80-100) fL MCH 29.3 (26-34) PG MCHC 34.3 (30-36) % RDW 14.5 (11.6-14.8) % Plt Count 144 L (150-400) X10^3/uL Neut % (Auto) 84.8 H (50-75) % Lymph % (Auto) 8.0 L (25-40) % [place] % (Auto) 6.4 (3-14) % Eos % (Auto) 0.4 L (2-4) % Baso % (Auto) 0.4 (0-2) % Neut # (Auto) 7000 (8238-3629) /uL Lymph # (Auto) 700 L (6668-8083) /uL [place] # (Auto) 500 (0-900) /uL Eos # (Auto) 0 (0-450) /uL Baso # (Auto) 0 (0-100) /uL Sodium 137 (137-145) mmol/L Potassium 3.8 (3.4-5.1) mmol/L Chloride 104 (98-107) mmol/L Carbon Dioxide 22 (22-32) mmol/L BUN 16 (9-20) mg/dL Creatinine 1.07 (0.66-1.25) mg/dL Estimated GFR > 60 (>60) mL/min BUN/Creatinine Ratio 15.0 (6-22) Glucose 155 H (80-110) mg/dL Lactate (0.7-2.1) mmol/L Calcium 7.8 L (8.4-10.2) mg/dL Total Bilirubin 0.7 (0.2-1.3) mg/dL AST 25 (17-59) IU/L ALT 23 (<50) IU/L Alkaline Phosphatase 94 (38-126) U/L Total Creatine Kinase 88 (55-170) U/L CK-MB (CK-2) TNP CK-MB (CK-2) Rel Index TNP Troponin I 0.013 (0.01-0.034) ng/mL NT-Pro-B Natriuret Pep 710 H (<450) pg/mL Total Protein 7.5 (6.3-8.2) g/dL Albumin 4.1 (3.5-5.0) g/dL Globulin 3.4 (1.7-4.1) g/dL Albumin/Globulin Ratio 1.2 (1.0-2.8) Procalcitonin 0.19 (<0.5) ng/mL SARS-CoV-2 (PCR) Negative (Negative) Influenza A (RT-PCR) Flu a positive H (NEGATIVE) Influenza B (RT-PCR) Flu b negative (NEGATIVE) RSV (PCR) Negative (Negative) 09/26/22 Range/Units 01:52 WBC (4.5-11.0) X10^3/uL RBC (4.5-5.9) X10^6/uL Hgb (13.5-17.5) g/dL Hct (41-53) % MCV (80-100) fL MCH (26-34) PG MCHC (30-36) % RDW (11.6-14.8) % Plt Count (150-400) X10^3/uL Neut % (Auto) (50-75) % Lymph % (Auto) (25-40) % [place] % (Auto) (3-14) % Eos % (Auto) (2-4) % Baso % (Auto) (0-2) % Neut # (Auto) (8089-9709) /uL Lymph # (Auto) (4965-0801) /uL [place] # (Auto) (0-900) /uL Eos # (Auto) (0-450) /uL Baso # (Auto) (0-100) /uL Sodium (137-145) mmol/L Potassium (3.4-5.1) mmol/L Chloride (98-107) mmol/L Carbon Dioxide (22-32) mmol/L BUN (9-20) mg/dL Creatinine (0.66-1.25) mg/dL Estimated GFR (>60) mL/min BUN/Creatinine Ratio (6-22) Glucose (80-110) mg/dL Lactate 1.1 (0.7-2.1) mmol/L Calcium (8.4-10.2) mg/dL Total Bilirubin (0.2-1.3) mg/dL AST (17-59) IU/L ALT (<50) IU/L Alkaline Phosphatase (38-126) U/L Total Creatine Kinase (55-170) U/L CK-MB (CK-2) CK-MB (CK-2) Rel Index Troponin I (0.01-0.034) ng/mL NT-Pro-B Natriuret Pep (<450) pg/mL Total Protein (6.3-8.2) g/dL Albumin (3.5-5.0) g/dL Globulin (1.7-4.1) g/dL Albumin/Globulin Ratio (1.0-2.8) Procalcitonin (<0.5) ng/mL SARS-CoV-2 (PCR) (Negative) Influenza A (RT-PCR) (NEGATIVE) Influenza B (RT-PCR) (NEGATIVE) RSV (PCR) (Negative) Imaging Data Chest x-ray: Radiologist's Impression: XRay Report Signed Patient: Jatin Cruz MR#: [id number] : 1940 Acct:[id number] Age/Sex: 82 / M Date of Service: 09/26/22 Loc: ED Accession Number: [id number] ?? Procedure: XR chest 1V Ordering Provider: Lorna Scruggs D.O. PROCEDURE:? XR CHEST 1V ? INDICATIONS:? short of breath ? TECHNIQUE:? One view of the chest was acquired.? ? COMPARISON:? [facility], , XR CHEST 1V, 12/02/2021, 7:34. ? FINDINGS:? ? Surgical changes and devices:? None.? ? Lungs and pleura:? There is hyperinflation of the lungs with flattening of the hemidiaphragms compatible with COPD.? No acute consolidation.? No pleural effusions or pneumothorax.? ? Mediastinum:? Mediastinal contours appear normal.? Heart size is normal.? ? Bones and chest wall:? No suspicious bony lesions.? Overlying soft tissues appear unremarkable.? ? IMPRESSION:? ? 1.? No acute cardiopulmonary disease. ? 2. Findings compatible with COPD. ? ? ? Dictated by: French Morfin M.D. on 09/26/2022 at 2:13 ? ? ECG Data Interpretation: Sinus rhythm rate 86 [place] interval 156 QRS [address] changes no T-wave inversions right bundle-branch block MDM Narrative Medical decision making narrative: Patient has a granddaughter at home who is diagnosed with influenza he also has influenza a. He is not hypoxic is or septic. Blood work is overall reassuring. He is given IV fluids and albuterol here in the ED. Feeling better. At this time does not meet any sort of admission criteria. Can go home with supportive care only. His heart rate is noted to be quite irregular on the monitor. He states that this is not abnormal for him. He denies any chest pain or palpitations. Discharge Plan Departure Patient Disposition: Home Clinical Impression: Influenza Instructions: DI for Influenza -- Adult Activity Restrictions/Additional Instructions: *You have been diagnosed with influenza A *What to do: At this time he of influenza a. Expect to have body aches fever and chills. Stay hydrated and treat her fever. *Continue to take medications as directed Tylenol 650 mg every 4-6 hours if needed for pain or fever Motrin 600 mg every 6 hours if needed for pain or fever *Follow up with your primary care provider in 2-3 days or call [phone] *Return to ER if you should have creasing shortness of breath, decreased oral intake or any new, worsening or concerning symptoms Prescriptions: No Action aspirin 81 MG tablet,delayed release (DR/EC) 81 mg PO QDAY Qty: 30 acetaminophen 650 MG tablet extended release 650 mg PO BIDP PRN (Reason: Pain) Qty: 0 PreserVision AREDS 1 EACH capsule 1 sgl PO EVERY OTHER DAY Qty: 0 loratadine 10 MG tablet 10 mg PO QDAY Qty: 0 omeprazole 20 mg Capsule,Delayed Release(Dr/Ec) 20 mg PO DAILY bisoprolol fumarate 5 mg tablet 2.5 mg PO DAILY sertraline 100 mg tablet 100 mg PO DAILY cholecalciferol (vitamin D3) 25 mcg (1,000 unit) capsule 25 mcg PO DAILY Referrals: Kelli Valentine MD [Primary Care Provider] - Visit Report Forms: Patient Portal/API
[2022-09-26 02:27] LABS: Add Manual Diff / Slide Review NO; Basophils Absolute Auto 0 /uL (0-100); Basophils Percent Auto 0.4 % (0-2); Eosinophils Absolute Auto 0 /uL (0-450); Eosinophils Percent Auto 0.4 % (2-4); Hematocrit 40.1 % (41-53); Hemoglobin 13.8 g/dL (13.5-17.5); Lymphocytes Absolute Auto 700 /uL (1100-4500); Mean Corpuscular HGB Conc 34.3 % (30-36); Mean Corpuscular Hemoglobin 29.3 PG (26-34); Mean Corpuscular Volume 85.4 fL (80-100); Monocytes Absolute Auto 500 /uL (0-900); Monocytes Percent Auto 6.4 % (3-14); NT-proBNP (BNP-Adult 18+) 710 pg/mL (<450); Neutrophils Absolute Auto 7000 /uL (1500-7000); Neutrophils Percent Auto 84.8 % (50-75); Platelet Count 144 X10^3/uL (150-400); Red Cell Distribution Width 14.5 % (11.6-14.8); Troponin I 0.013 ng/mL (0.01-0.034); White Blood Cell Count 8.3 X10^3/uL (4.5-11.0)
[2022-09-26 02:31] LABS: Procalcitonin 0.19 ng/mL (<0.5)
[2022-09-26] MEDS: ACETAMINOPHEN 325 MG TABLET 975 MG PO (02:37)
[2022-09-26 02:38] LABS: Influenza A - CEPHEID Flu A POSITIVE (NEGATIVE); Influenza B - CEPHEID Flu B NEGATIVE (NEGATIVE); Respiratory Syncytial Virus Negative (Negative)
[2022-09-26 02:40] LABS: COVID-19 CEPHEID 4-PLEX PCR Negative (Negative)
[2022-09-26] MEDS: ALBUTEROL/IPRATROPIUM 3 ML AMPUL INH (03:52)
[2022-09-26] MEDS: SODIUM CHLORIDE 0.9% 1,000 ML 1000 ML IV (03:53)
== END 2022-09-26 05:08 | disposition home or self-care (01) ==
PROVIDERS: Emergency Provider Emergency Medicine; PCP Family Medicine
DX: J10.1 Influenza due to other identified influenza virus with other respiratory manifestations (principal); Z20.822 Contact with and (suspected) exposure to COVID-19
CPT/HCPCS: 0241U; 36415; 71045; 80053; 82550; 83605; 83880; 84145; 84484; 85025; 87040; 93005; 94640; 99284

== ENCOUNTER → 2023-02-08 12:25 | Outpatient (CLI) | payer MEDICARE, OTHER, SELFPAY ==
--- NOTE | 2023-02-08 | DI.RAD.S_ITS ---
PROCEDURE: XR KNEE RT 3V INDICATIONS: R KNEE PAIN TECHNIQUE: 3 views of the knee were acquired. COMPARISON: [facility], , KNEE 3V RIGHT, 11/27/2014, 11:02. FINDINGS: Bones: No fractures or dislocations. No suspicious bony lesions. Tricompartmental joint space narrowing with associated osteophytosis. Soft tissues: Small joint effusion. No suspicious soft tissue calcifications. IMPRESSION: Mild tricompartmental osteoarthritis. Dictated by: Bg Ferrara M.D. on 02/08/2023 at 13:13 Approved by: Bg Ferrara M.D. on 02/08/2023 at 13:14
--- NOTE | 2023-02-08 | DI.RAD.S_ITS ---
PROCEDURE: XR HIP W PEL IF DONE RT 2V INDICATIONS: R KNEE PAIN TECHNIQUE: AP pelvis with lateral view(s) of the right hip(s). COMPARISON: [facility], , XR HIP W PEL IF DONE RT 2V, 12/10/2020, 10:33. FINDINGS: Bones: No fractures or dislocations. Pelvic ring appears intact. No suspicious bony lesions. Moderate right hip degenerative arthritis with osteophytosis and joint space loss. Right SI joint ankylosis. Mild to moderate left hip degenerative arthritis. Soft tissues: The visualized bowel gas pattern is normal. No suspicious soft tissue calcifications. IMPRESSION: 1. Moderate right hip degenerative arthritis. 2. Right SI joint ankylosis. 3. Left hip degenerative arthritis. Dictated by: Pollo Steiner M.D. on 02/08/2023 at 17:19 Approved by: Pollo Steiner M.D. on 02/08/2023 at 17:20
== END ==
PROVIDERS: PCP Family Medicine; Referring Provider Family Medicine; Visit Provider Family Medicine
DX: M17.11 Unilateral primary osteoarthritis, right knee (principal); M16.0 Bilateral primary osteoarthritis of hip; M43.28 Fusion of spine, sacral and sacrococcygeal region; M25.561 Pain in right knee
CPT/HCPCS: 73502; 73562

== ENCOUNTER 2023-07-14 11:49 | Day surgery (SDC) | payer MEDICARE, OTHER, SELFPAY ==
[2023-07-12 10:22] VITALS: BMI 30.1
[2023-07-14 12:53] VITALS: BMI 29.9
[2023-07-14 13:01] VITALS: BP 151/68; PULSE 77; RESP 16; TEMP 36.3; O2SAT 97
[2023-07-14] MEDS: LACTATED RINGERS 1,000 ML 100 ML IV ×2 (13:04→15:21)
--- NOTE | 2023-07-14 13:44 | PM.PREOP ---
Pre-operative Note Interval Note History & Physical reviewed/Exam performed by Physician: Yes Changes to H&P: No
[2023-07-14] MEDS: CEFAZOLIN 2 GM/100 ML PREMIX 100 ML IV (14:30)
--- NOTE | 2023-07-14 15:11 | SUR.OPER ---
Supine on padded OR bed, head on pillow, arms padded and tucked at sides, legs uncrossed, safety belt at thigh, tape over blanket over lower legs .
[2023-07-14] MEDS: BUPIVACAINE 0.25% (PF) VIAL 30 ML INJ (15:13)
--- NOTE | 2023-07-14 15:49 | PM.OP.1 ---
Operative Date/Time/Diagnoses Date of procedure: 07/14/23 Time of procedure: 15:49 Pre-op diagnosis: recurrent bilateral inguinal hernia Post-op diagnosis: other (recurrent right inguinal hernia) Procedure & Clinicians Procedure: Laparoscopic repair of recurrent right inguinal hernia. Same procedure as scheduled: Yes Indications: 83-year-old man with a symptomatic right and left inguinal hernia following remote history of bilateral open repair. Surgeon: James Baum Tiger Machine Operator: Ángel Hargrove Anesthesia Type: General Operative Notes Findings: Direct recurrent right inguinal hernia. No left inguinal hernia. Estimated Blood Loss (mL): 5 Procedure in detail: The patient was brought to the operating room and placed supine on the table. Bilateral sequential compression devices were applied. General anesthesia was induced and they were intubated with an endotracheal tube. A huynh cath was placed in sterile fashion. They received 900g clindaymycin prior to skin incision. They were prepped and draped in sterile fashion. A time out was performed to ensure the correct patient, procedure and necessary equipment within the operating room. The skin was infiltrated with 0.25% bupivicaine. A 1 cm supra umbilical midline incision was made. The fascia was sharply incised and the abdomen entered traumatically. A 10mm balloon port was placed and pneumoperitoneum was established at 15mm Hg. Inspection of the abdomen demonstrated no evidence of injury upon entry. Two 5 mm ports were then placed under direct visualization in the right and left lower quadrant lateral to the rectus muscle. A right-sided direct hernia was observed. The peritoneum 4 cm superior to the deep inguinal ring between the medial umbilical ligament and the anterior superior iliac spine was incised. The medial preperitoneal dissection was carried out into the space of Retzius bluntly, the bladder was swept inferiorly, the pubis and Yassine's ligament were identified. Next attention was turned towards the lateral aspect of the peritoneal flap. The preperitoneal fat with the testicular vessels was carefully dissected off the inferior peritoneal flap. The cord was carefully inspected there was a ball of previous anterior mesh which was adherent to the cord structures no evidence of indirect hernia. The attachements to the direct hernia sac were divided and the direct defect was reduced. A large Bard 3D Max mesh was then placed into the abdomen and positioned such that the myopectineal orifice was completely covered with good overlap on all sides. The peritoneal flap was then repositioned back to its original position and a running V lock suture was used to close the peritoneum such that no bowel could herniate into the preperitoneal space. The area was examined for hemostasis. The 5mm trocars were removed under direct visualization and pneumoperitoneum was deflated through the umbilical trocar, The fascia at the umbilicus was closed with 0-Vicryl in figure of 8 fashion, skin closed with 4-0 Monocyl followed by Dermabond. The sponge and instrument count at the end of the case was correct. Both testicles were entirely within the scrotum at the end of the case. The patient emerged from anesthsia was extubated and transferred to recovery in stable condition. Complications: none Post-operative Condition: stable Disposition: same day surgery
[2023-07-14 15:59] VITALS: BP 162/71; PULSE 80; RESP 15; O2SAT 97
[2023-07-14 16:00] VITALS: BP 171/75; PULSE 83; RESP 13; TEMP 36.6; O2SAT 97
[2023-07-14 16:04] VITALS: BP 146/73; PULSE 78; RESP 13; O2SAT 97
[2023-07-14 16:08] VITALS: BP 151/76; PULSE 79; RESP 12; O2SAT 97
[2023-07-14] MEDS: HYDROCODONE/ACET 5/325 TABLET 1 TAB PO (16:12)
[2023-07-14 16:16] VITALS: BP 151/76; PULSE 77; RESP 14; O2SAT 98
== END 2023-07-14 16:43 | disposition home or self-care (01) ==
PROVIDERS: PCP Family Medicine; Referring Provider Surgery; Visit Provider Surgery
PROC: 0YQ54ZZ Repair Right Inguinal Region, Percutaneous Endoscopic Approach (ICD-10-PCS; CPT 49651; principal; 2023-07-14 13:30)
DX: K40.90 Unilateral inguinal hernia, without obstruction or gangrene, not specified as recurrent (principal)
CPT/HCPCS: 49651; J0690; J1170; J2405; J3010

== ENCOUNTER → 2023-10-21 16:34 | Outpatient (CLI) | payer MEDICARE, OTHER, SELFPAY ==
--- NOTE | 2023-10-21 | DI.US.S_ITS ---
PROCEDURE: US CAROTID DOPPLER BI INDICATIONS: DIZZINESS TECHNIQUE: Color and pulse Doppler interrogation was performed of both carotid systems, with image documentation and velocity measurements. COMPARISON: None. FINDINGS: Stenosis calculations are based on SRU (Society of Radiologists in Ultrasound) criteria. Right side: Brachial blood pressure: Not obtained Common carotid artery peak systolic velocity: 122 cm/sec. Internal carotid artery peak systolic velocity: 68 cm/sec. Internal carotid artery end diastolic velocity: 14 cm/sec. External carotid artery peak systolic velocity: 145 cm/sec. ICA/CCA peak systolic ratio: 0.55 . Bowen scale imaging description: No atherosclerotic plaque Percent internal carotid artery stenosis: Normal . Vertebral artery: Flow direction is antegrade. Left side: Brachial blood pressure: Not obtained Common carotid artery peak systolic velocity: 103 cm/sec. Internal carotid artery peak systolic velocity: 73 cm/sec. Internal carotid artery end diastolic velocity: 15 cm/sec. External carotid artery peak systolic velocity: 104 cm/sec. ICA/CCA peak systolic ratio: 0.71 . Bowen scale imaging description: No atherosclerotic plaque Percent internal carotid artery stenosis: Normal . Vertebral artery: Flow direction is antegrade. IMPRESSION: Bilateral internal carotid arteries are normal with no significant stenosis. Dictated by: Jony Royal M.D. on 10/22/2023 at 10:12 Approved by: Jony Royal M.D. on 10/22/2023 at 10:33
== END ==
PROVIDERS: PCP Family Medicine; Referring Provider Nurse Practitioner Family; Visit Provider Nurse Practitioner Family
DX: R42 Dizziness and giddiness (principal)
CPT/HCPCS: 93880

== ENCOUNTER → 2023-12-29 10:48 | Outpatient (CLI) | payer MEDICARE, OTHER, SELFPAY ==
[2023-12-29 12:42] LABS: Alanine Aminotransferase 17 IU/L (<50); Albumin 4.1 g/dL (3.5-5.0); Albumin Globulin Ratio 1.3 (1.0-2.8); Alkaline Phosphatase 93 U/L (38-126); Aspartate Aminotransferase 27 IU/L (17-59); BUN Creatinine Ratio 16.8 (6-22); Bilirubin Total 0.8 mg/dL (0.2-1.3); Blood Urea Nitrogen 17 mg/dL (9-20); Calcium 8.9 mg/dL (8.4-10.2); Carbon Dioxide 22 mmol/L (22-32); Chloride 109 mmol/L (98-107); Cholesterol 152 mg/dL (140-199); Estimated Glomerular Filt Rate > 60 mL/min (>60); Globulin 3.2 g/dL (1.7-4.1); Glucose 101 mg/dL (80-110); HDL Cholesterol 48 mg/dL (40-60); HEMOLYSIS < 15 (0-50); LDL Cholesterol Calculated 92 mg/dL (<100); Potassium 4.4 mmol/L (3.4-5.1); Sodium 139 mmol/L (137-145); Total Protein 7.3 g/dL (6.3-8.2); Triglycerides 62 mg/dL (35-150)
== END ==
PROVIDERS: PCP Family Medicine; Referring Provider Nurse Practitioner; Visit Provider Nurse Practitioner
DX: I10 Essential (primary) hypertension (principal)
CPT/HCPCS: 36415; 80053; 80061

== ENCOUNTER → 2024-01-12 11:29 | Outpatient (CLI) | payer MEDICARE, OTHER, SELFPAY ==
--- NOTE | 2024-01-12 | DI.MRI.S_ITS ---
PROCEDURE: MR LUMBAR SPINE WO CON INDICATIONS: Radiculopathy, lumbar region TECHNIQUE: Noncontrast sagittal T1 spin echo and T2 fast echo, sagittal STIR, and T2 fast spin echo through the lumbar spine. In cases with scoliosis, additional coronal T2 fast spin echo may be performed. COMPARISON: None. FINDINGS: Image quality: Excellent. Alignment and Curvature: There is normal bony alignment. Bone Marrow: Marrow is of normal overall signal. No acute vertebral body compression fractures. Spinal Cord: Conus medullaris terminates at the L1 level. Visualized cord demonstrates normal signal and size. Paraspinous Soft Tissues: No paravertebral masses. T12-L1: Mild disc desiccation. Broad-based disc bulge. Moderate facet ligamentum flavum hypertrophy. No canal stenosis. No foraminal narrowing. L1-L2: Mild disc desiccation and height loss. Broad-based disc bulge. Moderate facet ligamentum flavum hypertrophy. No foraminal stenosis. L2-L3: Mild disc desiccation and height loss. Broad-based disc bulge. Severe facet ligamentum flavum hypertrophy. No canal stenosis. Mild bilateral foraminal stenosis. L3-L4: Moderate disc desiccation and height loss. Broad-based disc bulge. Severe facet ligamentum flavum hypertrophy. Severe canal stenosis. Moderate bilateral foraminal stenosis. L4-L5: Moderate disc desiccation and height loss. Broad-based disc bulge. Severe facet ligamentum flavum hypertrophy. Severe canal stenosis. Severe bilateral foraminal narrowing. L5-S1: Moderate to severe disc desiccation and height loss. Vacuum disc phenomenon. Severe facet ligamentum flavum hypertrophy. Moderate canal stenosis. Moderate right foraminal stenosis. No left neural foraminal narrowing. IMPRESSION: 1. Multilevel disc desiccation and height loss most severe at L4-5 and L5-S1. 2. Broad-based disc bulges and severe facet ligamentum flavum hypertrophy with resultant severe canal stenosis at L3-4 and L4-5. 3. Moderate bilateral foraminal stenosis at L3-4, moderate right foraminal stenosis at L5-S1 and severe bilateral foraminal stenosis at L4-5. Dictated by: Rosa M Elias M.D. on 01/12/2024 at 14:46 Approved by: Rosa M Elias M.D. on 01/12/2024 at 14:50
== END ==
LOC: MRI 11:31
PROVIDERS: PCP Family Medicine; Referring Provider Family Medicine; Visit Provider Family Medicine
DX: M51.16 Intervertebral disc disorders with radiculopathy, lumbar region (principal); M51.17 Intervertebral disc disorders with radiculopathy, lumbosacral region; M47.26 Other spondylosis with radiculopathy, lumbar region; M47.27 Other spondylosis with radiculopathy, lumbosacral region; M48.061 Spinal stenosis, lumbar region without neurogenic claudication; M48.07 Spinal stenosis, lumbosacral region
CPT/HCPCS: 72148

== ENCOUNTER 2024-01-12 23:29 | Emergency (ER) | payer MEDICARE, OTHER, SELFPAY ==
[2024-01-12 23:40] VITALS: BP 179/78; PULSE 106; RESP 20; TEMP 37.6; O2SAT 95; BMI 30.2
--- NOTE | 2024-01-12 23:47 | DI.RAD.S_ITS ---
PROCEDURE: XR CHEST 1V INDICATIONS: DYSPNEA TECHNIQUE: One view of the chest was acquired. COMPARISON: [facility], CR, XR CHEST 1V, 09/26/2022, 1:44. [facility], CR, XR CHEST 1V, 12/02/2021, 7:34. FINDINGS: Surgical changes and devices: None. Lungs and pleura: Lungs are hyperexpanded and clear. No pleural effusions or pneumothorax. Mediastinum: Mediastinal contours appear normal. Heart size is normal. Bones and chest wall: No suspicious bony lesions. Overlying soft tissues appear unremarkable. IMPRESSION: No acute cardiopulmonary abnormality is seen. Approved by: Juan Yoder M.D. on 01/13/2024 at 0:42
--- NOTE | 2024-01-12 23:47 | ED.GENADULT ---
HPI - General Adult General Chief complaint: Weakness Stated complaint: weakness Time Seen by Provider: 01/12/24 23:32 History of Present Illness HPI narrative: 83-year-old male with history of hypertension, COPD, macular degeneration presents by EMS from home for an episode of generalized weakness with shakiness. Patient states that he has had nonspecific viral symptoms including nonproductive cough, sinus congestion for the last several days. This evening he was walking to the bathroom when he felt very weak and shaky all over. He told his to call 911. EMS state that patient seemed to be very globally weak when they arrived but no focal deficits appreciated. EN route Accu-Chek was 89. On arrival patient stated he felt much better. He said he felt mildly short of breath, denied weakness, fever, chills, chest pain, abdominal pain, other complaints. Related Data Home Medications Medication Instructions Recorded Confirmed omeprazole 20 mg capsule,delayed 20 mg PO DAILY 05/23/19 07/29/23 release cholecalciferol (vitamin D3) 25 25 mcg PO DAILY 07/30/22 07/29/23 mcg (1,000 unit) capsule aspirin 325 mg tablet 325 mg PO DAILY 07/09/23 07/29/23 docusate sodium 250 mg capsule 250 mg PO Q OTHER DAY 07/09/23 07/29/23 fluticasone propionate 50 1 spray intranasal BID PRN Allergy 07/09/23 07/29/23 mcg/actuation nasal Symptoms spray,suspension gabapentin 100 mg capsule 100 mg PO BEDTIME 07/09/23 07/29/23 triamcinolone acetonide 0.1 % 1 applic topical DAILY 07/09/23 07/29/23 topical ointment Previous Rx's Medication Instructions Recorded acetaminophen 325 mg capsule 650 mg (2 x 325 mg) PO QID PRN 07/14/23 (Tylenol) pain #60 caps docusate sodium 100 mg capsule 100 mg PO BID #30 caps 07/14/23 (Colace) Allergies Allergy/AdvReac Type Severity Reaction Status Date / Time ketchup Allergy Mild Itchy Verified 01/12/24 23:59 peanut Allergy Mild itchy Verified 01/12/24 23:59 Penicillins [PENICILLINS] Allergy Unknown ITCHY DRY Verified 01/12/24 23:59 RECTUM Sulfa (Sulfonamide Allergy Unknown ITCHY, DRY Verified 01/12/24 23:59 Antibiotics) RECTUM [SULFA (SULFONAMIDE ANTIBIOTICS)] adhesive tape AdvReac Mild itching, Verified 01/12/24 23:59 rash EGGS Allergy Intermediate ITCHY SKIN Uncoded 01/12/24 23:59 canned foods Allergy Mild Itchy Uncoded 01/12/24 23:59 hot sauce AdvReac Unknown ITCHING Uncoded 01/12/24 23:59 Review of Systems Review of Systems Narrative: Negative except as noted above Patient History Medical History Lactose intolerance COPD (chronic obstructive pulmonary disease) Arthritis Legally blind in left eye, as defined in [place] Irregular heart beat History of shingles History of headache (~2017) History of gallstones Cataract fragments in right eye following surgery Cyst (~03/2019) Gastric reflux Allergy desensitization therapy Seasonal allergies Macular degeneration Surgical History H/O sinus surgery History of appendectomy History of eye surgery History of inguinal hernia repair, bilateral H/O umbilical hernia repair Family History Mother Heart disease Dementia Blindness Uncle Diabetes mellitus Grandmother Cancer Social History marital status: household members: spouse lives independently: Yes occupational status: previously employed Smoking Status: Former smoker alcohol intake: never substance use type: does not use Smoking Status: Former smoker Substance Use Type: does not use Exam Initial Vital Signs Initial Vital Signs: Vital Signs Temperature 99.7 F H 01/12/24 23:40 Pulse Rate 106 H 01/12/24 23:40 Respiratory Rate 20 01/12/24 23:40 Blood Pressure 179/78 H 01/12/24 23:40 Pulse Oximetry 95 01/12/24 23:40 Oxygen Delivery Method Room Air 01/12/24 23:40 Const: Awake, alert, no acute distress, nontoxic appearing Cardiac: regular rate, regular rhythm RESP: unlabored, clear bilaterally, no wheezing GI: Soft, nontender, nondistended, no rebound, no guarding MSK: Atraumatic, full range of motion, pulses equal Skin: Warm, Dry, intact, no rashes Neuro: AO x3, CN II-XII grossly intact, moves all extremities Course Orders Ordered: ED Orders 01/12/24 23:45 CBC Auto Diff [Complete Blood Count AUTO DIFF] Stat CMP [Comprehensive Metabolic Panel] Stat Lipase Stat PT [Prothrombin Time INR] Stat Respiratory Panel (Film Array) Stat Troponin & CK Cardiac Panel Stat 01/12/24 23:47 Chest [XR chest 1V] Stat EKG-12 Lead Stat 01/13/24 00:35 UA Complete [Urinalysis and Microscopic] Stat Discontinued Medications Acetaminophen (Acetaminophen 325 Mg Tablet) 975 mg PO NOW ONE Stop: 01/13/24 00:26 Last Admin: 01/13/24 00:30 Dose: 975 mg Documented By: LYDIA Vital Signs Vital signs: Vital Signs - 8 hr 01/12/24 23:40 01/13/24 00:02 01/13/24 00:30 Temperature 99.7 F H 100 F H Pulse Rate 106 H 107 H Respiratory Rate 20 28 H Blood Pressure 179/78 H 148/71 H Pulse Oximetry 95 95 Oxygen Delivery Method Room Air Room Air 01/13/24 00:40 01/13/24 01:00 01/13/24 01:29 Temperature Pulse Rate 109 H 109 H 108 H Respiratory Rate 28 H 28 H 28 H Blood Pressure 150/69 H 144/66 H 148/63 H Pulse Oximetry 94 94 96 Oxygen Delivery Method Room Air Room Air Room Air 01/13/24 01:30 Temperature 99.9 F H Pulse Rate Respiratory Rate Blood Pressure Pulse Oximetry Oxygen Delivery Method Medical Decision Making Lab Data 01/12/24 23:45 01/12/24 23:45 Labs: Lab Results 01/12/24 01/13/24 Range/Units 23:45 00:35 WBC 11.6 H (4.5-11.0) X10^3/uL RBC 4.91 (4.5-5.9) X10^6/uL Hgb 14.1 (13.5-17.5) g/dL Hct 41.0 (41-53) % MCV 83.5 (80-100) fL MCH 28.8 (26-34) PG MCHC 34.5 (30-36) % RDW 15.1 H (11.6-14.8) % Plt Count 192 (150-400) X10^3/uL Neut % (Auto) 87.1 H (50-75) % Lymph % (Auto) 7.6 L (25-40) % [place] % (Auto) 3.9 (3-14) % Eos % (Auto) 0.9 L (2-4) % Baso % (Auto) 0.5 (0-2) % Neut # (Auto) 09476 H (1820-3308) /uL Lymph # (Auto) 900 L (7565-1595) /uL [place] # (Auto) 500 (0-900) /uL Eos # (Auto) 100 (0-450) /uL Baso # (Auto) 100 (0-100) /uL PT 12.7 H (9.4-12.5) SECONDS INR 1.1 (0.9-1.3) Sodium 141 (137-145) mmol/L Potassium 4.1 (3.4-5.1) mmol/L Chloride 106 (98-107) mmol/L Carbon Dioxide 28 (22-32) mmol/L BUN 19 (9-20) mg/dL Creatinine 0.90 (0.66-1.25) mg/dL Estimated GFR > 60 (>60) mL/min BUN/Creatinine Ratio 21.1 (6-22) Glucose 128 H (80-110) mg/dL Calcium 8.8 (8.4-10.2) mg/dL Total Bilirubin 0.9 (0.2-1.3) mg/dL AST 27 (17-59) IU/L ALT 17 (<50) IU/L Alkaline Phosphatase 94 (38-126) U/L Total Creatine Kinase 122 (55-170) U/L Troponin I < 0.012 (0.01-0.034) ng/mL Total Protein 8.2 (6.3-8.2) g/dL Albumin 4.4 (3.5-5.0) g/dL Globulin 3.8 (1.7-4.1) g/dL Albumin/Globulin Ratio 1.2 (1.0-2.8) Lipase 84 (23-300) U/L Urine Color Yellow Urine Appearance Clear Urine pH 6.5 (4.5-8.0) Ur Specific [place] 1.010 (1.000-1.035) Urine Protein Negative (Negative) Urine Glucose (UA) Negative (Negative) g/dL Urine Ketones Negative (NEGATIVE) Urine Occult Blood Negative (Negative) Urine Nitrate Negative (Negative) Urine Bilirubin Negative (NEGATIVE) Urine Urobilinogen 4.0 H (0.2) E.U./dL Ur Leukocyte Esterase Negative (NEGATIVE) Urine RBC None seen (0-5/HPF) Urine WBC None seen (0-5/HPF) Ur Squamous Epith Cells None seen (0-5/HPF) Urine Bacteria None seen (None) Ur Culture Indicated? Cult not indicated Vol Urine Centrifuged 10ml (spun) Chlamy pneumoniae PCR Not detected (Not Detect) Adenovirus (PCR) Not detected (Not Detect) B.parapertussis DNA PCR Not detected (Not Detecte) Coronavirus OC43 (PCR) Not detected (Not Detect) Coronavirus HKU1 (PCR) Not detected (Not Detect) Coronavirus 229E (PCR) Not detected (Not Detect) SARS-CoV-2 (PCR) Not detected (Not Detecte) Coronavirus NL63 (PCR) Not detected (Not Detect) Human Metapneumovir PCR Not detected (Not Detect) Influenza Type A (PCR) Not detected (Not Detect) Influenza Type B (PCR) Not detected (Not Detect) M. pneumoniae (PCR) Not detected (Not Detect) Parainfluenza 1 (PCR) Not detected (Not Detect) Parainfluenza 2 (PCR) Not detected (Not Detect) Parainfluenza 3 (PCR) Not detected (Not Detect) Parainfluenza 4 (PCR) Not detected (Not Detect) RSV (PCR) Not detected (Not Detect) Entero/Rhino (PCR) Not detected (Not Detect) Imaging Data Chest x-ray: Radiologist's Impression: PROCEDURE: XR CHEST 1V INDICATIONS: DYSPNEA TECHNIQUE: One view of the chest was acquired. COMPARISON: [facility], XR CHEST 1V, 09/26/2022, 1:44. [facility], , XR CHEST 1V, 12/02/2021, 7:34. FINDINGS: Surgical changes and devices: None. Lungs and pleura: Lungs are hyperexpanded and clear. No pleural effusions or pneumothorax. Mediastinum: Mediastinal contours appear normal. Heart size is normal. Bones and chest wall: No suspicious bony lesions. Overlying soft tissues appear unremarkable. IMPRESSION: No acute cardiopulmonary abnormality is seen. Approved by: Juan Yoder M.D. on 01/13/2024 at 0:42 ECG Data Interpretation: Sinus tachycardia at 108 beats per minute. Right bundle-branch block, normal NE. When compared to EKG from 2021 right bundle-branch block is also present MDM Narrative Medical decision making narrative: Pleasant, otherwise well-appearing patient presenting with brief episode of generalized weakness and shakiness, spontaneously resolved prior to arrival. Patient resting comfortably, endorses mild shortness of breath, but does have history of COPD. Lungs are clear to auscultation bilaterally, patient is speaking in complete sentences without dyspnea, saturating well on room air. EKG is sinus tachycardia with right bundle-branch block. Right bundle-branch block is present on EKG from 2021, however there were no other recent priors for comparison. Laboratory work shows WBC count 11.6, hemoglobin 14.1. Sodium 141, potassium 4.1, creatinine 0.9, glucose 128, troponin undetectable. Viral panel negative. Chest x-ray shows no acute abnormalities, urinalysis is negative for signs of infection. Patient continues to state that he feels much better and is eager to go home. It is noted that patient is tachycardic at a rate of 108 beats per minute. He states he takes metoprolol and did not take his nightly dose before coming to the emergency department. He was followed by [facility] cardiology for his heart. 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 Son arrived to take patient home in stable condition. Discharge Plan Departure Patient Disposition: Home Clinical Impression: Episode of generalized weakness Instructions: DI for Muscle Weakness Activity Restrictions/Additional Instructions: Your laboratory work today was normal. Your chest x-ray and urinalysis did not show any signs of infection. Your heart rate was mildly elevated, which you said is normal for you. Be sure to take your nighttime medications and follow up with your manufacturing associate if you notice that your heart rate is continuously elevated. Please follow up with your primary care physician. Prescriptions: No Action aspirin 325 mg tablet 325 mg PO DAILY gabapentin 100 mg capsule 100 mg PO BEDTIME docusate sodium 250 mg capsule 250 mg PO Q OTHER DAY fluticasone propionate 50 mcg/actuation spray,suspension 1 spray intranasal BID PRN (Reason: Allergy Symptoms) Rx Instructions: administer into each nostril triamcinolone acetonide 0.1 % ointment 1 applic topical DAILY omeprazole 20 mg Capsule,Delayed Release(Dr/Ec) 20 mg PO DAILY docusate sodium [Colace] 100 mg capsule 100 mg PO BID Qty: 30 0RF acetaminophen [Tylenol] 325 mg capsule 650 mg PO QID PRN (Reason: pain) Qty: 60 0RF cholecalciferol (vitamin D3) 25 mcg (1,000 unit) capsule 25 mcg PO DAILY Referrals: Kelli Valentine MD [Primary Care Provider] - Stand Alone Forms: Patient Portal/API
[2024-01-12 23:58] LABS: Add Manual Diff / Slide Review NO; Basophils Absolute Auto 100 /uL (0-100); Basophils Percent Auto 0.5 % (0-2); Eosinophils Absolute Auto 100 /uL (0-450); Eosinophils Percent Auto 0.9 % (2-4); Hemoglobin 14.1 g/dL (13.5-17.5); Lymphocytes Absolute Auto 900 /uL (1100-4500); Lymphocytes Percent Auto 7.6 % (25-40); Mean Corpuscular HGB Conc 34.5 % (30-36); Mean Corpuscular Hemoglobin 28.8 PG (26-34); Mean Corpuscular Volume 83.5 fL (80-100); Monocytes Absolute Auto 500 /uL (0-900); Monocytes Percent Auto 3.9 % (3-14); Neutrophils Absolute Auto 10100 /uL (1500-7000); Neutrophils Percent Auto 87.1 % (50-75); Platelet Count 192 X10^3/uL (150-400); Red Blood Cell Count 4.91 X10^6/uL (4.5-5.9); Red Cell Distribution Width 15.1 % (11.6-14.8); White Blood Cell Count 11.6 X10^3/uL (4.5-11.0)
[2024-01-13 00:02] VITALS: BP 148/71; PULSE 107; RESP 28; O2SAT 95
[2024-01-13 00:08] LABS: INR 1.1 (0.9-1.3); Prothrombin Time 12.7 SECONDS (9.4-12.5)
[2024-01-13 00:09] LABS: Alanine Aminotransferase 17 IU/L (<50); Albumin 4.4 g/dL (3.5-5.0); Albumin Globulin Ratio 1.2 (1.0-2.8); Alkaline Phosphatase 94 U/L (38-126); Aspartate Aminotransferase 27 IU/L (17-59); BUN Creatinine Ratio 21.1 (6-22); Bilirubin Total 0.9 mg/dL (0.2-1.3); Blood Urea Nitrogen 19 mg/dL (9-20); Calcium 8.8 mg/dL (8.4-10.2); Carbon Dioxide 28 mmol/L (22-32); Chloride 106 mmol/L (98-107); Estimated Glomerular Filt Rate > 60 mL/min (>60); Globulin 3.8 g/dL (1.7-4.1); Glucose 128 mg/dL (80-110); HEMOLYSIS < 15 (0-50); Lipase 84 U/L (23-300); Potassium 4.1 mmol/L (3.4-5.1); Sodium 141 mmol/L (137-145); Total Protein 8.2 g/dL (6.3-8.2)
[2024-01-13 00:10] LABS: Creatine Kinase 122 U/L (55-170)
[2024-01-13 00:21] LABS: Troponin I < 0.012 ng/mL (0.01-0.034)
[2024-01-13 00:30] VITALS: TEMP 37.7
[2024-01-13] MEDS: ACETAMINOPHEN 325 MG TABLET 975 MG PO (00:30)
--- NOTE | 2024-01-13 00:36 | PC.NURSE ---
In a panic pt reported that he needed to urinate. This RN took guard rail down and pt proceeded to stand up without assist at the bedside and used the urinal at bedside. Pt then was able to place self back into bed. Pt became SOB with this activity but reports that this is his baseline r/t to COPD. Pt denies CP or dizziness. After resting for a few minutes, pt respirations become unlabored at 20 breaths per minute.
[2024-01-13 00:40] VITALS: BP 150/69; PULSE 109; RESP 28; O2SAT 94
[2024-01-13 00:45] LABS: Adenovirus Not Detected (Not Detect); B. parapertussis Not Detected (Not Detecte); Bordetella pertussis Not Detected (Not Detect); Chlamydophila pneumoniae Not Detected (Not Detect); Coronavirus 229E Not Detected (Not Detect); Coronavirus HKU1 Not Detected (Not Detect); Coronavirus NL 63 Not Detected (Not Detect); Coronavirus OC43 Not Detected (Not Detect); Human Metapneumovirus Not Detected (Not Detect); Human Rhinovirus/Enterovirus Not Detected (Not Detect); Influenza A Not Detected (Not Detect); Influenza B Not Detected (Not Detect); Mycoplasma pneumoniae Not Detected (Not Detect); Parainfluenza Virus 1 Not Detected (Not Detect); Parainfluenza Virus 2 Not Detected (Not Detect); Parainfluenza Virus 3 Not Detected (Not Detect); Parainfluenza Virus 4 Not Detected (Not Detect); Respiratory Syncytial Virus Not Detected (Not Detect); SARS- CoV-2 Not Detected (Not Detecte)
[2024-01-13 00:50] LABS: Appearance Urine UA CLEAR; Bilirubin Urine UA NEGATIVE (NEGATIVE); Color Urine UA YELLOW; Glucose Urine UA NEGATIVE (Negative); Ketones Urine UA NEGATIVE (NEGATIVE); Leukocyte Esterase Urine UA NEGATIVE (NEGATIVE); Nitrite Urine UA NEGATIVE (Negative); Occult Blood Urine UA NEGATIVE (Negative); Protein Urine UA NEGATIVE (Negative); pH Urine UA 6.5 (4.5-8.0)
[2024-01-13 00:56] LABS: Bacteria Urine None Seen; Culture Indicated Urine Cult Not Indicated; RBC Urine None Seen (0-5/HPF); Squamous Epithelial Cell Urine None Seen (0-5/HPF); Urine Volume 10mL (spun); WBC Urine None Seen (0-5/HPF)
[2024-01-13 01:00] VITALS: BP 144/66; PULSE 109; RESP 28; O2SAT 94
[2024-01-13 01:29] VITALS: BP 148/63; PULSE 108; RESP 28; O2SAT 96
[2024-01-13 01:30] VITALS: TEMP 37.7
== END 2024-01-13 01:45 | disposition home or self-care (01) ==
PROVIDERS: Emergency Provider Emergency Medicine; PCP Family Medicine
DX: R53.1 Weakness (principal); R06.00 Dyspnea, unspecified; Z20.822 Contact with and (suspected) exposure to COVID-19; M51.16 Intervertebral disc disorders with radiculopathy, lumbar region; M51.17 Intervertebral disc disorders with radiculopathy, lumbosacral region; M47.26 Other spondylosis with radiculopathy, lumbar region; M47.27 Other spondylosis with radiculopathy, lumbosacral region; M48.061 Spinal stenosis, lumbar region without neurogenic claudication; M48.07 Spinal stenosis, lumbosacral region
CPT/HCPCS: 36415; 71045; 72148; 80053; 81001; 82550; 83690; 84484; 85025; 85610; 87633; 93005; 93010; 99283; 99284

== ENCOUNTER → 2024-02-28 10:03 | Outpatient (CLI) | payer MEDICARE, OTHER, SELFPAY ==
--- NOTE | 2024-02-28 10:06 | DI.NM.S_ITS ---
PROCEDURE: NM JENS PERF SPECT R&S PHARM Rest and pharmacological stress myocardial perfusion SPECT with gated imaging and ejection fraction RADIOPHARMACEUTICAL: 11.9 mCi Tc-99m tetrafosmin IV at rest and 25.4 mCi Tc-99m tetrafosmin IV at peak effect of pharmacological stress. [id number] was performed. INDICATIONS: Essential (primary) hypertension TECHNIQUE: Radiopharmaceutical was injected at peak stress test, and also at rest. SPECT images were obtained. SPECT myocardial perfusion images were displayed in short axis, horizontal long axis, and vertical long axis views. Gated images were reviewed using [employer] software. COMPARISON: None. CARDIAC STRESS: A pharmacologic stress test was performed under the supervision of an attending staff, using an infusion of lexiscan 0.4mg IV X1. Hemodynamic data: There is normal blood pressure and heart rate response to pharmacologic stress. Symptoms: The patient denied anginal chest pain. Aminophylline: none EKG: No diagnostic changes of ischemia; rare PACs present. FINDINGS: Raw data: There is good myocardial uptake of radiotracer. No significant motion artifacts. Lxcd-rk-uhqor ratio is 0.24 (normal is less than 0.38 for tetrafosmin tracer). Left ventricle function: Gated images demonstrate normal left ventricular wall thickening. No segmental wall motion abnormalities. No transient ischemic dilation; TID is 1.22 (normal less than 1.3). Left ventricle resting end diastolic volume is 116mL. Left ventricle stress ejection fraction 55%; normal range is above 45%. Myocardial perfusion: There is a moderately intense fixed inferior wall that improves with prone imaging, suggesting diaphragmatic attenuation artifact but old non-transmural infarction can't be excluded. Mildly intense fixed apical defect that persists on prone imaging, suggesting apical thinning artifact but old non-transmural infarction can't be excluded. SSS 1. IMPRESSION: Low risk, probably normal pharm nuclear stress test 1) There is a moderately intense fixed inferior wall that improves with prone imaging, suggesting diaphragmatic attenuation artifact but old non-transmural infarction can't be excluded. Mildly intense fixed apical defect that persists on prone imaging, suggesting apical thinning artifact but old non-transmural infarction can't be excluded. SSS 1. 2) Normal left ventricular size, wall motion, and systolic function (EF post stress 55%). 3) No diagnostic ST changes with lexiscan. 4) No angina during the study. 5) Compared to the treadmill nuclear stress test done 08/28/2020, no significant perfusion changes. Dictated by: Joana Castellano MD on 02/29/2024 at 13:35 Approved by: Joana Castellano MD on 02/29/2024 at 13:38
--- NOTE | 2024-02-28 10:06 | DI.ECHO.S_ITS ---
[place] [facility] +---------+ Hospital : : [address] : : [place] : : [id number] : : Phone: [phone] Echocardiogram Report + + :Name: YAZMIN RUIZ Study Date: 02/28/2024 Height: 70 in : :Hospital ReadingLocation: Weight: 218 lb : : Gender: Male BSA: 2.2 m2 : :: 1940 Age: 83 yrs BP: 146/76 mmHg: :Reason For Study: ESSENTIAL HYPERTENSION : :Ordering Physician: GUADALUPE, : :SULMA Cuellar Performed By: Kory Gudino : :Referring: SULMA BUTCHER W : + + Interpretation Summary The left ventricle is normal in size. The right ventricle is grossly normal size.Left ventricular ejection fraction is estimated to be 55 +/- 5%. LV dyssynchrony during PACs. The right ventricular systolic function is normal. There is mild mitral regurgitation. Compared to the prior echo study, there has been no change in the severity of mitral regurgitation. There is mild aortic regurgitation. Compared to the prior echo study, there has been no change in the severity of aortic regurgitation. The IVC is of normal diameter and collapses greater than 50% with a sniff. This suggests a low right atrial pressure of 3 mm Hg. Procedure: A two-dimensional transthoracic echocardiogram with color flow and Doppler was performed. The study quality was technically adequate. Comparison is made with the echocardiogram of 07/30/2020. The heart rate ranged between 69-91 bpm during the study. The patient was in normal sinus rhythm during the exam. The patient had a bundle branch block rhythm during the exam. The patient had frequent PACs during the exam. Left Ventricle: There is mild concentric left ventricular hypertrophy. The left ventricle is normal in size. There is no thrombus. Left ventricular ejection fraction is estimated to be 55 +/- 5%. LV dyssynchrony during PACs. MV E/A: 0.64 Med Peak E' Elgin: 4.3 cm/sec E/E' med: 16.9. Right Ventricle: The right ventricle is grossly normal size. The right ventricular systolic function is normal. Atria: The left atrium is moderately dilated. The left atrium has remained unchanged in size since the prior echo exam. Right atrial size is normal. The interatrial septum grossly appears intact with no obvious evidence for an atrial septal defect. Mitral Valve: There is mild mitral annular calcification. There is no mitral valve stenosis. There is mild mitral regurgitation. Compared to the prior echo study, there has been no change in the severity of mitral regurgitation. Aortic Valve: The aortic valve is trileaflet. There is no aortic valve stenosis. There is mild aortic regurgitation. Compared to the prior echo study, there has been no change in the severity of aortic regurgitation. Tricuspid Valve: The tricuspid valve is normal in structure and function. There is no tricuspid stenosis. There is trace tricuspid regurgitation. Pulmonary artery pressures cannot be estimated because of the lack of a measurable TR jet velocity. Pulmonic Valve: The pulmonic valve is not well visualized. There is no pulmonic valvular stenosis. There is mild pulmonic regurgitation. Great Vessels: The aortic root is normal size. The dimensions of the ascending aorta are normal. Aortic arch not well-visualized. The IVC is of normal diameter and collapses greater than 50% with a sniff. This suggests a low right atrial pressure of 3 mm Hg. Pericardium/ Pleura There is no pericardial effusion. There is no pleural effusion. MMode/2D Measurements & Calculations LVIDd: 4.7 cm LVOT diam: 2.5 cm LVIDs: 3.8 cm Ao root diam: 3.7 cm FS: 17.8 % asc Aorta Diam: 3.6 cm IVSd: 1.3 cm LVPWd: 1.1 cm LV maldonado. diameter/BSA (cm/m^2): 2.2 LV sys. diameter/BSA (cm/m^2): 1.8 LA A2 area: 30.5 cm2 RA long axis: 5.0 cm LA A4 area: 23.0 cm2 RA area: 18.7 cm2 LA length (vol): 6.1 cm RA vol: 59.7 ml LA vol: 97.3 ml RA : 27.6 ml/m2 LA vol index: 44.9 ml/m2 RVD1 (basal): 4.1 cm RVD2 (mid): 3.9 cm TAPSE: 3.3 cm Doppler Measurements & Calculations Ao V2 max: 142.7 cm/sec LVOT Max Elgin: 96.4 cm/sec Ao V2 mean: 93.7 cm/sec LV V1 max P.7 mmHg Ao max P.1 mmHg LV V1 VTI: 21.1 cm Ao mean P.1 mmHg EMMA(I,D): 3.5 cm2 Ao V2 VTI: 28.9 cm EMMA(V,D): 3.2 cm2 sev ratio: 0.73 EMMA indexed to BSA (cm^2/m^2): 1.6 AI P1/2t: 562.0 msec AI dec slope: 230.1 cm/sec2 MV E max elgin: 71.6 cm/sec PA V2 max: 113.7 cm/sec MV A max elgin: 112.3 cm/sec PA V2 mean: 78.7 cm/sec MV E/A: 0.64 PA mean P.8 mmHg Med Peak E' Elgin: 4.3 cm/sec PA pr(Accel): 20.8 mmHg E/E' med: 16.9 Lat Peak E' Elgin: 6.4 cm/sec E/E' lat: 11.2 E/e' average: 14.0 MV dec time: 0.24 sec SV(LVOT): 100.7 ml Reading Physician:01:01 PM
== END ==
LOC: NUCM 10:05
PROVIDERS: PCP Family Medicine; Referring Provider Nurse Practitioner; Visit Provider Nurse Practitioner
DX: I08.0 Rheumatic disorders of both mitral and aortic valves (principal); I45.10 Unspecified right bundle-branch block; I10 Essential (primary) hypertension; R94.31 Abnormal electrocardiogram [ECG] [EKG]
CPT/HCPCS: 78452; 93017; 93306; A9502; J2785

== ENCOUNTER 2024-03-09 09:51 | Emergency (ER) | payer MEDICARE, OTHER, SELFPAY ==
[2024-03-09] VITALS (14 sets, daily range): BP systolic 139–163; BP diastolic 62–74; PULSE 69–79; RESP 13–20; TEMP 36.3; O2SAT 94–97; BMI 28.0
--- NOTE | 2024-03-09 10:43 | DI.RAD.S_ITS ---
PROCEDURE: XR CHEST 1V INDICATIONS: chest pain TECHNIQUE: One view of the chest was acquired. COMPARISON: [facility], CR, XR CHEST 1V, 09/26/2022, 1:44. [facility], CR, XR CHEST 1V, 01/12/2024, 23:48. FINDINGS: Surgical changes and devices: None. Lungs and pleura: Lungs are clear. No pleural effusions or pneumothorax. Mediastinum: Mediastinal contours appear normal. Heart size is normal. Bones and chest wall: No suspicious bony lesions. Overlying soft tissues appear unremarkable. IMPRESSION: No acute cardiopulmonary abnormality is seen. Dictated by: Mai Marx MD, PhD on 03/09/2024 at 11:08 Approved by: Mai Marx MD, PhD on 03/09/2024 at 11:09
[2024-03-09 11:19] LABS: INR 1.1 (0.9-1.3); Prothrombin Time 12.4 SECONDS (9.4-12.5)
[2024-03-09 11:21] LABS: Add Manual Diff / Slide Review NO; Basophils Absolute Auto 0 /uL (0-100); Basophils Percent Auto 0.6 % (0-2); Eosinophils Absolute Auto 200 /uL (0-450); Eosinophils Percent Auto 3.4 % (2-4); Hematocrit 42.8 % (41-53); Hemoglobin 14.4 g/dL (13.5-17.5); Lymphocytes Absolute Auto 1400 /uL (1100-4500); Lymphocytes Percent Auto 22.6 % (25-40); Mean Corpuscular HGB Conc 33.6 % (30-36); Mean Corpuscular Hemoglobin 28.6 PG (26-34); Mean Corpuscular Volume 85.2 fL (80-100); Monocytes Absolute Auto 400 /uL (0-900); Monocytes Percent Auto 6.7 % (3-14); Neutrophils Absolute Auto 4300 /uL (1500-7000); Neutrophils Percent Auto 66.7 % (50-75); Platelet Count 209 X10^3/uL (150-400); Red Blood Cell Count 5.03 X10^6/uL (4.5-5.9); Red Cell Distribution Width 14.9 % (11.6-14.8); White Blood Cell Count 6.4 X10^3/uL (4.5-11.0)
[2024-03-09 11:22] LABS: PTT Partial Thromboplastin Tim 38 SECONDS (25.1-36.5)
[2024-03-09 11:23] LABS: Alanine Aminotransferase 16 IU/L (<50); Albumin 4.8 g/dL (3.5-5.0); Albumin Globulin Ratio 1.4 (1.0-2.8); Alkaline Phosphatase 104 U/L (38-126); Aspartate Aminotransferase 29 IU/L (17-59); BUN Creatinine Ratio 18.1 (6-22); Bilirubin Total 0.8 mg/dL (0.2-1.3); Blood Urea Nitrogen 17 mg/dL (9-20); Carbon Dioxide 27 mmol/L (22-32); Chloride 107 mmol/L (98-107); Creatine Kinase 90 U/L (55-170); Estimated Glomerular Filt Rate > 60 mL/min (>60); Globulin 3.4 g/dL (1.7-4.1); Glucose 106 mg/dL (80-110); HEMOLYSIS < 15 (0-50); Lipase 73 U/L (23-300); Magnesium 2.7 mg/dL (1.6-2.3); Potassium 4.2 mmol/L (3.4-5.1); Sodium 141 mmol/L (137-145); Total Protein 8.2 g/dL (6.3-8.2)
[2024-03-09 11:35] LABS: Troponin I < 0.012 ng/mL (0.01-0.034)
--- NOTE | 2024-03-09 11:52 | ED.DIZZY ---
HPI - Dizziness General Chief Complaint: Dizziness Stated Complaint: felt woosy pain in neck Time Seen by Provider: 03/09/24 11:36 Source: patient Mode of arrival: Wheelchair Limitations: no limitations History of Present Illness HPI Narrative: 83-year-old male history of hypertension, COPD, macular degeneration who presents with complaint of feeling dizzy and off for the past month. Patient states it has not vertigo the room is not spinning. He states it is intermittent can happen multiple times a day easily 15-30 times. He states he has had some falls but describes more mechanical falls but has hit his head in the past couple of months. He denies any syncopal episodes. He denies any new chest pain or shortness of breath today. He does sometimes have chest pain and he states he does feel shortness of breath at times. He has had some nausea at times but no vomiting. No diaphoresis. He notes that sometimes when he has symptoms he has pain in the back of his neck sometimes on the right sometimes on the left. He has some chronic paresthesias in his upper and lower extremities he describes having bilateral issues. He does not have any new weakness that he is describing. Patient used to be on home O2 but is no longer. He does take aspirin daily, he states no prior strokes or heart attacks used to be on medication for blood pressure and cholesterol but was taken off by his physician. No reports of diabetes. History of cholecystectomy. Patient has allergies to sulfa and penicillin. Quit tobacco and alcohol many years ago, no recreational drugs. Follows through this [facility] for his primary care. He has seen Cardiology with Dr. Madrigal. He states he had a nuclear med stress test a couple weeks ago and was told it was fine except for some Related Data Home Medications Medication Instructions Recorded Confirmed omeprazole 20 mg capsule,delayed 20 mg PO DAILY 05/23/19 07/29/23 release cholecalciferol (vitamin D3) 25 25 mcg PO DAILY 07/30/22 02/16/24 mcg (1,000 unit) capsule docusate sodium 250 mg capsule 250 mg PO Q OTHER DAY 07/09/23 07/29/23 fluticasone propionate 50 1 spray intranasal BID PRN Allergy 07/09/23 07/29/23 mcg/actuation nasal Symptoms spray,suspension gabapentin 100 mg capsule 100 mg PO BEDTIME 09/08/23 09/28/23 triamcinolone acetonide 0.1 % 1 applic topical DAILY 07/09/23 07/29/23 topical ointment albuterol sulfate 90 mcg/actuation 2 puff inhalation Q4-6H PRN 02/16/24 02/16/24 aerosol inhaler aspirin 81 mg tablet,delayed 81 mg PO DAILY 02/16/24 02/16/24 release Previous Rx's Medication Instructions Recorded acetaminophen 325 mg capsule 650 mg (2 x 325 mg) PO QID PRN 07/14/23 (Tylenol) pain #60 caps Allergies Allergy/AdvReac Type Severity Reaction Status Date / Time ketchup Allergy Mild Itchy Verified 03/09/24 10:02 peanut Allergy Mild itchy Verified 03/09/24 10:02 Penicillins [PENICILLINS] Allergy Unknown ITCHY DRY Verified 03/09/24 10:02 RECTUM Sulfa (Sulfonamide Allergy Unknown ITCHY, DRY Verified 03/09/24 10:02 Antibiotics) RECTUM [SULFA (SULFONAMIDE ANTIBIOTICS)] adhesive tape AdvReac Mild itching, Verified 03/09/24 10:02 rash EGGS Allergy Intermediate ITCHY SKIN Uncoded 02/16/24 13:56 canned foods Allergy Mild Itchy Uncoded 02/16/24 13:56 hot sauce AdvReac Unknown ITCHING Uncoded 02/16/24 13:56 Review of Systems Review of Systems ROS Unobtainable: All systems reviewed & are unremarkable except as noted in HPI and below Patient History Medical History Lactose intolerance COPD (chronic obstructive pulmonary disease) Arthritis Legally blind in left eye, as defined in [place] Irregular heart beat History of shingles History of headache (~2017) History of gallstones Cataract fragments in right eye following surgery Cyst (~03/2019) Gastric reflux Allergy desensitization therapy Seasonal allergies Macular degeneration Surgical History H/O sinus surgery History of appendectomy History of eye surgery History of inguinal hernia repair, bilateral H/O umbilical hernia repair Family History Mother Heart disease Dementia Blindness Uncle Diabetes mellitus Grandmother Cancer Social History marital status: household members: spouse lives independently: Yes occupational status: previously employed Smoking Status: Former smoker alcohol intake: never substance use type: does not use Smoking Status: Former smoker alcohol intake frequency: holidays/special occasions only Substance Use Type: does not use Exam Narrative Exam Narrative: GEN: well nourished, well appearing male, alert and oriented x 3, patient appears to be in mild distress. HEENT: Atraumatic, pupils are equal round reactive to light, extraocular movements are intact, nares are clear, TMs are clear with no fluid, there is no conjunctival pallor. Throat is clear without any exudates, erythema, tonsillar enlargement or uvular deviation, no facial droop. HEART: Regular rate and rhythm without murmur, clicks, rubs. Pulses are equal in upper and lower extremities LUNGS:Lungs clear to auscultation, no wheezes, rales, crackles, chest moves symmetrically ABD:bowel sounds normal, soft, non-tender, no guarding, rebound, rigidity, no masses noted, no hepatosplenomegaly :No CVA tenderness MSCL: Non-tender, no muscle atrophy, muscles strength 5/5 upper and lower extremities, full range of motion, normal gait NEURO:CN 2-12 intact, sensation normal SKIN: No rash, erythema or other skin changes. Initial Vital Signs Initial Vital Signs: Vital Signs Temperature 97.4 F L 03/09/24 09:52 Pulse Rate 72 03/09/24 09:52 Respiratory Rate 17 03/09/24 09:52 Blood Pressure 161/74 H 03/09/24 09:52 Pulse Oximetry 97 03/09/24 09:52 Oxygen Delivery Method Room Air 03/09/24 09:52 Course Orders Ordered: ED Orders 03/09/24 10:43 XR chest 1V Stat 03/09/24 12:52 CT angio head and neck Stat CT head/brain wo con Stat Discontinued Medications Aspirin (Aspirin 81 Mg Chew Tab) 324 mg PO NOW ONE Stop: 03/09/24 10:44 Last Admin: 03/09/24 11:25 Dose: Not Given Documented By: RLS Vital Signs Vital signs: Vital Signs - 8 hr 03/09/24 11:30 03/09/24 11:30 03/09/24 12:00 Pulse Rate 71 71 Respiratory Rate 17 18 Blood Pressure 153/71 H Pulse Oximetry 95 95 Oxygen Delivery Method Room Air 03/09/24 12:01 03/09/24 12:01 03/09/24 12:30 Pulse Rate 71 Respiratory Rate 17 Blood Pressure 141/65 H 140/67 Pulse Oximetry 95 Oxygen Delivery Method 03/09/24 12:30 03/09/24 13:10 03/09/24 13:30 Pulse Rate 70 79 72 Respiratory Rate 17 17 Blood Pressure Pulse Oximetry 96 97 Oxygen Delivery Method 03/09/24 14:00 03/09/24 14:30 03/09/24 14:41 Pulse Rate 69 69 Respiratory Rate 17 19 Blood Pressure 157/73 H Pulse Oximetry 95 94 Oxygen Delivery Method 03/09/24 14:41 Pulse Rate 70 Respiratory Rate 20 Blood Pressure Pulse Oximetry 95 Oxygen Delivery Method MDM - Dizziness Lab Data 03/09/24 10:09 03/09/24 10:09 Labs: Lab Results 03/09/24 Range/Units 10:09 WBC 6.4 (4.5-11.0) X10^3/uL RBC 5.03 (4.5-5.9) X10^6/uL Hgb 14.4 (13.5-17.5) g/dL Hct 42.8 (41-53) % MCV 85.2 (80-100) fL MCH 28.6 (26-34) PG MCHC 33.6 (30-36) % RDW 14.9 H (11.6-14.8) % Plt Count 209 (150-400) X10^3/uL Neut % (Auto) 66.7 (50-75) % Lymph % (Auto) 22.6 L (25-40) % [place] % (Auto) 6.7 (3-14) % Eos % (Auto) 3.4 (2-4) % Baso % (Auto) 0.6 (0-2) % Neut # (Auto) 4300 (0712-0211) /uL Lymph # (Auto) 1400 (3652-7961) /uL [place] # (Auto) 400 (0-900) /uL Eos # (Auto) 200 (0-450) /uL Baso # (Auto) 0 (0-100) /uL PT 12.4 (9.4-12.5) SECONDS INR 1.1 (0.9-1.3) APTT 38 H (25.1-36.5) SECONDS Sodium 141 (137-145) mmol/L Potassium 4.2 (3.4-5.1) mmol/L Chloride 107 (98-107) mmol/L Carbon Dioxide 27 (22-32) mmol/L BUN 17 (9-20) mg/dL Creatinine 0.94 (0.66-1.25) mg/dL Estimated GFR > 60 (>60) mL/min BUN/Creatinine Ratio 18.1 (6-22) Glucose 106 (80-110) mg/dL Calcium 9.0 (8.4-10.2) mg/dL Magnesium 2.7 H (1.6-2.3) mg/dL Total Bilirubin 0.8 (0.2-1.3) mg/dL AST 29 (17-59) IU/L ALT 16 (<50) IU/L Alkaline Phosphatase 104 (38-126) U/L Total Creatine Kinase 90 (55-170) U/L Troponin I < 0.012 (0.01-0.034) ng/mL Total Protein 8.2 (6.3-8.2) g/dL Albumin 4.8 (3.5-5.0) g/dL Globulin 3.4 (1.7-4.1) g/dL Albumin/Globulin Ratio 1.4 (1.0-2.8) Lipase 73 (23-300) U/L Imaging Data Chest x-ray: Radiologist's Impression: Jatin Cruz?(Beto)??83??M??1940 ? Allergy/Adv: ketchup, peanut, Penicillins, Sulfa (Sulfonamide Antibiotics), adhesive tape, [EGGS], [canned foods], [hot sauce] (More??) Close Chest X-Ray (Signed) Mai Marx - 03/09/24 Myocardial Perfusion Scan Nuc Med (Signed) Joana Castellano - 02/28/24 Echocardiogram Ultrasound (Signed) Koko Madrigal - 02/28/24 Chest X-Ray (Signed) Juan Yoder - 01/12/24 Lumbar Spine MRI (Signed) Rosa M Elias - 01/12/24 Carotid Doppler Study (Signed) Jony Royal - 10/21/23 Knee X-Ray (Signed) Josias,Bg - 02/08/23 Hip X-Ray (Signed) Pollo Steiner - 02/08/23 Chest X-Ray (Signed) French Morfin - 09/26/22 PFT Result 01/02/22 Chest X-Ray (Signed) Kory Leary - 12/02/21 PFT Result 09/12/21 Shoulder X-Ray (Signed) RaquelStephen rodneykleber - 12/10/20 Hip X-Ray (Signed) RaquelTone rodneyjason - 12/10/20 Myocardial Perfusion Scan Nuc Med (Signed) Jessica Castellanou - 08/28/20 Echocardiogram Ultrasound (Signed) Jessica Castellanou - 07/30/20 PFT Result 09/08/19 Cervical Spine X-Ray (Signed) Sanaz Sierra - 09/08/19 Barium Swallow X-Ray (Signed) Zain Ramírez - 09/08/19 Mammogram Diagnostic (Signed) Gustavo Johnson - 09/04/19 Breast Ultrasound (Signed) Daniella Skaggs - 08/28/19 Shoulder X-Ray (Signed) Aram Fenton - 08/01/19 Launch?[place] [address] XRay Report Signed Patient: Jatin Cruz MR#: [id number] : 1940 Acct:[id number] Age/Sex: 83 / M Date of Service: 03/09/24 Loc: ED Accession Number: [id number] Procedure: XR chest 1V Ordering Provider: Mckayla Vázquez D.O. PROCEDURE: XR CHEST 1V INDICATIONS: chest pain TECHNIQUE: One view of the chest was acquired. COMPARISON: [facility], CR, XR CHEST 1V, 09/26/2022, 1:44. [facility], , XR CHEST 1V, 01/12/2024, 23:48. FINDINGS: Surgical changes and devices: None. Lungs and pleura: Lungs are clear. No pleural effusions or pneumothorax. Mediastinum: Mediastinal contours appear normal. Heart size is normal. Bones and chest wall: No suspicious bony lesions. Overlying soft tissues appear unremarkable. IMPRESSION: No acute cardiopulmonary abnormality is seen. Dictated by: Mai Marx MD, PhD on 03/09/2024 at 11:08 Approved by: Mai Marx MD, PhD on 03/09/2024 at 11:09 CT scan - head: Radiologist's Impression: Jatin Cruz?(Beto)??83??M??1940 ? Allergy/Adv: ketchup, peanut, Penicillins, Sulfa (Sulfonamide Antibiotics), adhesive tape, [EGGS], [canned foods], [hot sauce] (More??) Close Head/Neck CTA (Signed) Pollo Steiner - 03/09/[address] (Signed) Pollo Steiner - 03/09/24 Chest X-Ray (Signed) Mai Marx - 03/09/24 Myocardial Perfusion Scan Nuc Med (Signed) Joana Castellano - 02/28/24 Echocardiogram Ultrasound (Signed) Koko Madrigal - 02/28/24 Chest X-Ray (Signed) Juan Yoder - 01/12/24 Lumbar Spine MRI (Signed) Rosa M Elias - 01/12/24 Carotid Doppler Study (Signed) Jony Royal - 10/21/23 Knee X-Ray (Signed) Bg Ferrara - 02/08/23 Hip X-Ray (Signed) Pollo Steiner - 02/08/23 Chest X-Ray (Signed) French Morfin - 09/26/22 PFT Result 01/02/22 Chest X-Ray (Signed) Kory Leary - 12/02/21 PFT Result 09/12/21 Shoulder X-Ray (Signed) Tory García - 12/10/20 Hip X-Ray (Signed) Tory García - 12/10/20 Myocardial Perfusion Scan Nuc Med (Signed) Nona,Jessicau - 08/28/20 Echocardiogram Ultrasound (Signed) Jessica Castellanou - 07/30/20 PFT Result 09/08/19 Cervical Spine X-Ray (Signed) Sanaz Sierra - 09/08/19 Barium Swallow X-Ray (Signed) Zain Ramírez - 09/08/19 Mammogram Diagnostic (Signed) Gustavo Johnson - 09/04/19 Breast Ultrasound (Signed) Daniella Skaggs - 08/28/19 Shoulder X-Ray (Signed) Aram Fenton - 08/01/19 Launch?[address] [address] [address] Scan Report Signed with Addenda Patient: Jatin Cruz MR#: [id number] : 1940 Acct:[id number] Age/Sex: 83 / M Date of Service: 03/09/24 Loc: ED Accession Number: [id number] Procedure: CT head/brain wo con Ordering Provider: Mckayla Vázquez D.O. ADDENDUMThis report includes an Addendum and supersedes previous reports for this exam. PROCEDURE: CT HEAD/BRAIN WO CON INDICATIONS: espinoza, dizziness, multiple falls hit head TECHNIQUE: Noncontrast 4.5 mm thick angled axial sections acquired from the foramen magnum to the vertex, with coronal and sagittal reformats. For radiation dose reduction, the following was used: automated exposure control, adjustment of mA and/or kV according to patient size. COMPARISON: None. FINDINGS: Image quality: Diagnostic. CSF spaces: Basal cisterns are patent. No extra-axial fluid collections. The ventricles are symmetric in size and shape. Brain: No intracranial bleeds or masses. There is cerebral volume loss for age, with resultant ventricular and sulcal prominence. There are mild periventricular and deep white matter chronic small vessel ischemic changes. 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 There is intracranial internal carotid artery atherosclerosis. Skull and face: Calvarium and visualized facial bones appear intact, without suspicious lesions. Sinuses: Visualized sinuses and mastoids are clear. IMPRESSION: No acute intracranial pathology. 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 Mild small vessel ischemic change. Dictated by: Pollo Steiner M.D. on 03/09/2024 at 13:48 Approved by: Pollo Steiner M.D. on 03/09/2024 at 13:50 ADDENDUM: There is also subtotal opacification right sphenoid sinus with inspissated mucus. ADDENDED IMPRESSION: No acute intracranial pathology. 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 Mild small vessel ischemic change. Right sphenoid sinus disease. Dictated by: Pollo Steiner M.D. on 03/09/2024 at 14:00 Approved by: Pollo Steiner M.D. on 03/09/2024 at 14:00 Addendum Dictated By: Pollo Steiner MD Addendum Signed By: 03/09/241399 Addendum Cosigned By: DD/ /25/1400 TD/TT: 03/09/2407/25/1400 PROCEDURE: CT HEAD/BRAIN WO CON INDICATIONS: espinoza, dizziness, multiple falls hit head TECHNIQUE: Noncontrast 4.5 mm thick angled axial sections acquired from the foramen magnum to the vertex, with coronal and sagittal reformats. For radiation dose reduction, the following was used: automated exposure control, adjustment of mA and/or kV according to patient size. COMPARISON: None. FINDINGS: Image quality: Diagnostic. CSF spaces: Basal cisterns are patent. No extra-axial fluid collections. The ventricles are symmetric in size and shape. Brain: No intracranial bleeds or masses. There is cerebral volume loss for age, with resultant ventricular and sulcal prominence. There are mild periventricular and deep white matter chronic small vessel ischemic changes. 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 There is intracranial internal carotid artery atherosclerosis. Skull and face: Calvarium and visualized facial bones appear intact, without suspicious lesions. Sinuses: Visualized sinuses and mastoids are clear. IMPRESSION: No acute intracranial pathology. 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 Mild small vessel ischemic change. Dictated by: Pollo Steiner M.D. on 03/09/2024 at 13:48 Approved by: Pollo Steiner M.D. on 03/09/2024 at 13:50 CTA - brain/neck: Radiologist's Impression: Jatin Cruz?(Beto)??83??M??1940 ? Allergy/Adv: ketchup, peanut, Penicillins, Sulfa (Sulfonamide Antibiotics), adhesive tape, [EGGS], [canned foods], [hot sauce] (More??) Close Head/Neck CTA (Signed) Pollo Steiner - 03/09/[address] (Signed) Pollo Steiner - 03/09/24 Chest X-Ray (Signed) Mai Marx - 03/09/24 Myocardial Perfusion Scan Nuc Med (Signed) Jessica Castellanou - 02/28/24 Echocardiogram Ultrasound (Signed) Koko Madrigal - 02/28/24 Chest X-Ray (Signed) Juan Yoder - 01/12/24 Lumbar Spine MRI (Signed) Rosa M Elias - 01/12/24 Carotid Doppler Study (Signed) Jony Royal - 10/21/23 Knee X-Ray (Signed) Bg Ferrara - 02/08/23 Hip X-Ray (Signed) JatinLeopoldoPollo - 02/08/23 Chest X-Ray (Signed) French Morfin - 09/26/22 PFT Result 01/02/22 Chest X-Ray (Signed) Kory Leary - 12/02/21 PFT Result 09/12/21 Shoulder X-Ray (Signed) Tory García - 12/10/20 Hip X-Ray (Signed) Tory García - 12/10/20 Myocardial Perfusion Scan Nuc Med (Signed) Joana Castellano - 08/28/20 Echocardiogram Ultrasound (Signed) Joana Castellano - 07/30/20 PFT Result 09/08/19 Cervical Spine X-Ray (Signed) Sanaz Sierra - 09/08/19 Barium Swallow X-Ray (Signed) Zain Ramírez - 09/08/19 Mammogram Diagnostic (Signed) Gustavo Johnson - 09/04/19 Breast Ultrasound (Signed) Daniella Skaggs - 08/28/19 Shoulder X-Ray (Signed) Aram Fenton - 08/01/19 [facility]?[place] [address] CT Scan Report Signed Patient: Jatin Cruz MR#: [id number] : 1940 Acct:[id number] Age/Sex: 83 / M Date of Service: 03/09/24 Loc: ED Accession Number: [id number] Procedure: CT angio head and neck Ordering Provider: Mckayla Vázquez D.O. PROCEDURE: CT ANGIO HEAD AND NECK INDICATIONS: espinoza, dizziness, multiple falls hit head TECHNIQUE: After the administration of intravenous contrast, 1 mm thick sections acquired from the aortic arch through the [place]. 3-dimensional almfcqs-apiigxibt-cxunfrwfqg (MIP) and/or volume rendering reformats were acquired of the central intracranial vasculature and neck separately. For radiation dose reduction, the following was used: automated exposure control, adjustment of mA and/or kV according to patient size. COMPARISON: [facility], CT, CT HEAD/BRAIN WO CON, 03/09/2024, 13:01. FINDINGS: Image quality: Diagnostic. BRAIN: CSF spaces: Ventricles are normal in size and shape. Basal cisterns are patent. No extra-axial fluid collections. 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 Skull and face: Calvarium and facial bones appear intact, without suspicious lesions. Orbits appear normal. Sinuses: Subtotal opacification of the right sphenoid sinus with inspissated mucus present. HEAD CT ANGIOGRAPHY: Anterior circulation: Intracranial internal carotid arteries are normal in size and flow. The flow within the paired anterior cerebral arteries is normal and symmetric. The flow within the middle cerebral arteries is normal and symmetric. The anterior communicating artery is seen. No aneurysms are seen. Posterior circulation: Visualized portions of the vertebral arteries demonstrate normal caliber, and join to form a normal appearing basilar artery. Flow within the posterior cerebral arteries is normal and symmetric. No aneurysms are seen. NECK CT ANGIOGRAPHY: Carotid system: The great vessels demonstrate a normal variant bovine arch anatomy as they arise from the aortic arch. The origins of the common carotid arteries appear patent. The common carotid arteries demonstrate normal caliber and courses. The bifurcation regions are both widely patent. The internal carotid arteries demonstrate normal calibers and courses. Posterior circulation: The origins of the vertebral arteries both appear widely patent. The more superior extracranial portions of both vertebral arteries also demonstrate normal courses and calibers. They join to form a normal appearing basilar artery. Soft tissues: Visualized neck soft tissues demonstrate no suspicious abnormalities. Bones: No suspicious bony lesions. Visualized cervical spine appears normally aligned. IMPRESSION: 1. No significant intracranial arterial abnormality is seen. 2. No significant abnormality is seen within the arteries of the neck. 3. 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 4. Right sphenoid sinus disease. Any quantitative measurements of stenosis were performed using NASCET criteria. Dictated by: Pollo Steiner M.D. on 03/09/2024 at 13:54 Approved by: Pollo Steiner M.D. on 03/09/2024 at 13:59 ECG Data Attestation: I personally reviewed and interpreted this ECG as follows: Prior ECG tracings: available for review Interpretation: Sinus rhythm premature atrial complex, right bundle-branch block rate of 75 WI 164 QRS of [address] elevation or depression noted. Patient has prior EKG from 01/12/2024 appears similar. MDM Narrative Medical decision making narrative: Show white count of 6.4 hemoglobin of 14 platelets of 209 INR 1.1, creatinine normal at 0.94 with a BUN 19 glucose is 106 sodium is 141 potassium of 4 2 chloride of 107 CO2 of 27 Mag is slightly elevated at 2.7- LFTs negative troponin. Patient's EKG shows sinus rhythm with occasional PVCs. Chest x-ray shows no acute change. Patient did have stress test myocardial there was moderately intense fixed inferior wall improves with prone imaging suggest diaphragmatic attenuation but old transmural infarct could not be excluded, normal ventricular size, no ST changes no angina. No significant perfusion changes compared to prior 2019. Patient does not appear to be having any acute neurologic events but has had his times and also describes some pain in the sides of his neck alternating but not with movement but with episodes of lightheadedness or dizziness. Plan for head CT and CT angio. They show no acute change of the brain, old right frontal infarct, small mild vessel ischemic change right sphenoid sinus disease. CT angio shows no significant intracranial or abnormality in the arteries of the neck old right frontal infarct and right sphenoid sinus disease. Patient is otherwise exam is normal. He was able to in the in the department. [place] appropriate for discharge home to follow up with primary care. Discharge Plan Departure Patient Disposition: Home Clinical Impression: Lightheadedness Instructions: DI for Dizziness-Nonvertigo Activity Restrictions/Additional Instructions: Follow up with your physician for recheck. Your labs and imaging today did show some sphenoid sinus disease and an old right frontal stroke. Please continue your home medications as prescribed. Please return for new or worsening symptoms, severe headaches, facial droop, difficulty with speech, new weakness numbness or difficulty with movement particularly on 1 side, inability to ambulate safely or other new or concerning changes. Prescriptions: No Action gabapentin 100 mg capsule 100 mg PO BEDTIME docusate sodium 250 mg capsule 250 mg PO Q OTHER DAY fluticasone propionate 50 mcg/actuation spray,suspension 1 spray intranasal BID PRN (Reason: Allergy Symptoms) Rx Instructions: administer into each nostril triamcinolone acetonide 0.1 % ointment 1 applic topical DAILY omeprazole 20 mg Capsule,Delayed Release(Dr/Ec) 20 mg PO DAILY acetaminophen [Tylenol] 325 mg capsule 650 mg PO QID PRN (Reason: pain) Qty: 60 0RF albuterol sulfate 90 mcg/actuation HFA aerosol inhaler 2 puff inhalation Q4-6H PRN aspirin 81 mg tablet,delayed release (DR/EC) 81 mg PO DAILY cholecalciferol (vitamin D3) 25 mcg (1,000 unit) capsule 25 mcg PO DAILY Referrals: Kelli Valentine MD [Primary Care Provider] - Stand Alone Forms: Patient Portal/API
--- NOTE | 2024-03-09 12:52 | DI.CT.S_ITS ---
PROCEDURE: CT ANGIO HEAD AND NECK INDICATIONS: espinoza, dizziness, multiple falls hit head TECHNIQUE: After the administration of intravenous contrast, 1 mm thick sections acquired from the aortic arch through the [place]. 3-dimensional lxuwxrp-ddetcflue-prkrbtfstg (MIP) and/or volume rendering reformats were acquired of the central intracranial vasculature and neck separately. For radiation dose reduction, the following was used: automated exposure control, adjustment of mA and/or kV according to patient size. COMPARISON: [facility], CT, CT HEAD/BRAIN WO CON, 03/09/2024, 13:01. FINDINGS: Image quality: Diagnostic. BRAIN: CSF spaces: Ventricles are normal in size and shape. Basal cisterns are patent. No extra-axial fluid collections. 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 Skull and face: Calvarium and facial bones appear intact, without suspicious lesions. Orbits appear normal. Sinuses: Subtotal opacification of the right sphenoid sinus with inspissated mucus present. HEAD CT ANGIOGRAPHY: Anterior circulation: Intracranial internal carotid arteries are normal in size and flow. The flow within the paired anterior cerebral arteries is normal and symmetric. The flow within the middle cerebral arteries is normal and symmetric. The anterior communicating artery is seen. No aneurysms are seen. Posterior circulation: Visualized portions of the vertebral arteries demonstrate normal caliber, and join to form a normal appearing basilar artery. Flow within the posterior cerebral arteries is normal and symmetric. No aneurysms are seen. NECK CT ANGIOGRAPHY: Carotid system: The great vessels demonstrate a normal variant bovine arch anatomy as they arise from the aortic arch. The origins of the common carotid arteries appear patent. The common carotid arteries demonstrate normal caliber and courses. The bifurcation regions are both widely patent. The internal carotid arteries demonstrate normal calibers and courses. Posterior circulation: The origins of the vertebral arteries both appear widely patent. The more superior extracranial portions of both vertebral arteries also demonstrate normal courses and calibers. They join to form a normal appearing basilar artery. Soft tissues: Visualized neck soft tissues demonstrate no suspicious abnormalities. Bones: No suspicious bony lesions. Visualized cervical spine appears normally aligned. IMPRESSION: 1. No significant intracranial arterial abnormality is seen. 2. No significant abnormality is seen within the arteries of the neck. 3. 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 4. Right sphenoid sinus disease. Any quantitative measurements of stenosis were performed using NASCET criteria. Dictated by: Pollo Steiner M.D. on 03/09/2024 at 13:54 Approved by: Pollo Steiner M.D. on 03/09/2024 at 13:59
--- NOTE | 2024-03-09 12:52 | DI.CT.S_ITS ---
PROCEDURE: CT HEAD/BRAIN WO CON INDICATIONS: espinoza, dizziness, multiple falls hit head TECHNIQUE: Noncontrast 4.5 mm thick angled axial sections acquired from the foramen magnum to the vertex, with coronal and sagittal reformats. For radiation dose reduction, the following was used: automated exposure control, adjustment of mA and/or kV according to patient size. COMPARISON: None. FINDINGS: Image quality: Diagnostic. CSF spaces: Basal cisterns are patent. No extra-axial fluid collections. The ventricles are symmetric in size and shape. Brain: No intracranial bleeds or masses. There is cerebral volume loss for age, with resultant ventricular and sulcal prominence. There are mild periventricular and deep white matter chronic small vessel ischemic changes. 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 There is intracranial internal carotid artery atherosclerosis. Skull and face: Calvarium and visualized facial bones appear intact, without suspicious lesions. Sinuses: Visualized sinuses and mastoids are clear. IMPRESSION: No acute intracranial pathology. 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 Mild small vessel ischemic change. Dictated by: Pollo Steiner M.D. on 03/09/2024 at 13:48 Approved by: Pollo Steiner M.D. on 03/09/2024 at 13:50
== END 2024-03-09 14:56 | disposition home or self-care (01) ==
PROVIDERS: Emergency Provider Emergency Medicine; PCP Family Medicine
DX: R42 Dizziness and giddiness (principal); R07.9 Chest pain, unspecified
CPT/HCPCS: 36415; 70450; 70496; 70498; 71045; 80053; 82550; 83690; 83735; 84484; 85025; 85610; 85730; 93005; 93010; 99284

== ENCOUNTER → 2024-05-24 12:19 | Outpatient (CLI) | payer MEDICARE, OTHER, SELFPAY ==
--- NOTE | 2024-05-24 12:22 | DI.RAD.S_ITS ---
PROCEDURE: XR CHEST 2V INDICATIONS: EXACERBATION TECHNIQUE: 2 views of the chest were acquired. COMPARISON: [facility], CR, XR CHEST 1V, 03/09/2024, 10:51. FINDINGS: Surgical changes and devices: None. Lungs and pleura: Increased bilateral interstitial thickening. No pleural effusions or pneumothorax. Mediastinum: Cardiomediastinal silhouette is mildly prominent. Bones and chest wall: No suspicious bony abnormalities. Cholecystectomy clips within the right upper quadrant. IMPRESSION: The cardiomediastinal silhouette is enlarged and there is increased bilateral interstitial thickening. Findings are suggestive for congestive heart failure. Dictated by: Donis Cordova M.D. on 05/24/2024 at 17:06 Approved by: Donis Cordova M.D. on 05/24/2024 at 17:10
== END ==
PROVIDERS: PCP Family Medicine; Referring Provider Family Medicine; Visit Provider Family Medicine
DX: J44.1 Chronic obstructive pulmonary disease with (acute) exacerbation (principal)
CPT/HCPCS: 71046

== ENCOUNTER 2024-05-29 09:03 | Emergency (ER) | payer MEDICARE, OTHER, SELFPAY ==
[2024-05-29] VITALS (8 sets, daily range): BP systolic 151–170; BP diastolic 70–75; PULSE 74–85; RESP 18–24; TEMP 36.3–36.7; O2SAT 94–96; BMI 30.8
--- NOTE | 2024-05-29 09:23 | ED.GENADULT ---
HPI - General Adult General Chief complaint: Shortness of Breath/Dyspnea Stated complaint: abd pain, OSUNA, SOB Time Seen by Provider: 05/29/24 09:05 Source: patient Mode of arrival: Ambulatory History of Present Illness HPI narrative: 84-year-old gentleman with a history of COPD, reflux presents complaining of dyspnea, headache and cough. He was seen in an outpatient clinic last week and given a course of azithromycin along with the inhalers and and is not improving. He notes that he has been using albuterol inhaler and ipratropium inhaler and if anything is getting worse. He was not given oral steroids, he did complete a course of azithromycin. He is complaining of mild orthopnea, significant wheeze that is limiting activity however oxygen saturations remain in the 94-98% range. He has describing no headaches, minor cough, fevers have improved, no abdominal pain, no extremity edema Related Data Home Medications Medication Instructions Recorded Confirmed omeprazole 20 mg capsule,delayed 20 mg PO DAILY 05/23/19 07/29/23 release cholecalciferol (vitamin D3) 25 25 mcg PO DAILY 07/30/22 02/16/24 mcg (1,000 unit) capsule docusate sodium 250 mg capsule 250 mg PO Q OTHER DAY 07/09/23 07/29/23 fluticasone propionate 50 1 spray intranasal BID PRN Allergy 07/09/23 07/29/23 mcg/actuation nasal Symptoms spray,suspension gabapentin 100 mg capsule 100 mg PO BEDTIME 07/09/23 07/29/23 triamcinolone acetonide 0.1 % 1 applic topical DAILY 07/09/23 07/29/23 topical ointment albuterol sulfate 90 mcg/actuation 2 puff inhalation Q4-6H PRN 02/16/24 02/16/24 aerosol inhaler aspirin 81 mg tablet,delayed 81 mg PO DAILY 02/16/24 02/16/24 release Previous Rx's Medication Instructions Recorded acetaminophen 325 mg capsule 650 mg (2 x 325 mg) PO QID PRN 07/14/23 (Tylenol) pain #60 caps prednisone 20 mg tablet 20 mg PO DAILY #5 tabs 05/29/24 Allergies Allergy/AdvReac Type Severity Reaction Status Date / Time ketchup Allergy Mild Itchy Verified 05/29/24 09:13 peanut Allergy Mild itchy Verified 05/29/24 09:13 Penicillins [PENICILLINS] Allergy Unknown ITCHY DRY Verified 05/29/24 09:13 RECTUM Sulfa (Sulfonamide Allergy Unknown ITCHY, DRY Verified 05/29/24 09:13 Antibiotics) RECTUM [SULFA (SULFONAMIDE ANTIBIOTICS)] egg AdvReac Intermediate ITCHING Verified 05/29/24 09:31 adhesive tape AdvReac Mild itching, Verified 05/29/24 09:13 rash canned foods Allergy Mild Itchy Uncoded 05/29/24 09:13 hot sauce AdvReac Unknown ITCHING Uncoded 05/29/24 09:13 Review of Systems Review of Systems Narrative: Pertinent positive and negative findings as per HPI Patient History Medical History Lactose intolerance COPD (chronic obstructive pulmonary disease) Arthritis Legally blind in left eye, as defined in [place] Irregular heart beat History of shingles History of headache (~2017) History of gallstones Cataract fragments in right eye following surgery Cyst (~03/2019) Gastric reflux Allergy desensitization therapy Seasonal allergies Macular degeneration Surgical History H/O sinus surgery History of appendectomy History of eye surgery History of inguinal hernia repair, bilateral H/O umbilical hernia repair Family History Mother Heart disease Dementia Blindness Uncle Diabetes mellitus Grandmother Cancer Social History marital status: household members: spouse lives independently: Yes occupational status: previously employed Smoking Status: Former smoker alcohol intake: never substance use type: does not use Smoking Status: Former smoker alcohol intake frequency: holidays/special occasions only Substance Use Type: does not use Exam Initial Vital Signs Initial Vital Signs: Vital Signs Temperature 97.3 F L 05/29/24 09:11 Pulse Rate 84 05/29/24 09:11 Respiratory Rate 20 05/29/24 09:11 Blood Pressure 170/75 H 05/29/24 09:11 Pulse Oximetry 96 05/29/24 09:11 Oxygen Delivery Method Room Air 05/29/24 09:11 General: Healthy appearing, i audible wheeze from across the room however he is able to speak in full sentences. HEENT: Moist mucous membranes, normal sclera with reactive pupils, Neck: No JVD, supple Respiratory: Lungs with diffuse wheeze in all lung weinberg, mild crackles in the bases, no rhonchi appreciated Cardiac: Regular rate and rhythm no murmurs no bruits Abdomen: Soft, nontender, good bowel tones, no flank pain Skin: Warm and dry, no rashes Neurologic: Grossly neurologically intact with no obvious asymmetries or abnormalities Extremities: No trauma, well perfused, no significant lower extremity edema Psych: Cooperative, appropriate insight and affect Course Orders Ordered: ED Orders 05/29/24 09:24 XR chest 1V Stat EKG-12 Lead Stat Measure peak expiratory flow ONCE RT Consult Eval and Treat NOW 05/29/24 09:35 Complete Blood Count AUTO DIFF Stat Comprehensive Metabolic Panel Stat Lactate (Lactic Acid) Stat NT-proBNP (BNP-Adult 18+) Stat Prothrombin Time INR Stat Troponin I Stat 05/29/24 09:40 Respiratory Panel (Film Array) Stat Discontinued Medications Albuterol/Ipratropium (Albuterol/Ipratropium 3 Ml Ampul) 3 ml INH NOW ONE Stop: 05/29/24 09:30 Last Admin: 05/29/24 09:50 Dose: 3 ml Documented By: HUGH Magnesium Sulfate (Magnesium Sulfate) 2 gm in 50 mls @ 150 mls/hr IV NOW ONE Stop: 05/29/24 10:02 Last Infusion: 05/29/24 10:39 Dose: Infused Documented By: BLANK Co-signed By: VIRGINIE Admin: 05/29/24 10:01 Dose: 150 mls/hr Documented By: BLANK Co-signed By: VIRGINIE Methylprednisolone (Methylprednisolone 125 Mg/2 Ml Vial) 125 mg IV NOW ONE Stop: 05/29/24 09:44 Last Admin: 05/29/24 10:01 Dose: 125 mg Documented By: BLANK Vital Signs Vital signs: Vital Signs - 8 hr 05/29/24 09:11 05/29/24 09:17 05/29/24 09:30 Temperature 97.3 F L Pulse Rate 84 85 84 Respiratory Rate 20 Blood Pressure 170/75 H 170/75 H Pulse Oximetry 96 94 95 Oxygen Delivery Method Room Air Oxygen Flow Rate Fraction of Inspired Oxygen 05/29/24 09:50 05/29/24 10:00 05/29/24 10:30 Temperature Pulse Rate 75 74 74 Respiratory Rate 24 20 21 Blood Pressure Pulse Oximetry 96 95 95 Oxygen Delivery Method Room Air Oxygen Flow Rate 0 Fraction of Inspired Oxygen 21 05/29/24 10:36 05/29/24 10:36 Temperature Pulse Rate 74 Respiratory Rate 18 Blood Pressure 151/70 H Pulse Oximetry 95 Oxygen Delivery Method Oxygen Flow Rate Fraction of Inspired Oxygen Medical Decision Making Lab Data 05/29/24 09:35 05/29/24 09:35 Labs: Lab Results 05/29/24 05/29/24 Range/Units 09:35 09:40 WBC 6.2 (4.5-11.0) X10^3/uL RBC 4.86 (4.5-5.9) X10^6/uL Hgb 14.0 (13.5-17.5) g/dL Hct 40.4 L (41-53) % MCV 83.1 (80-100) fL MCH 28.7 (26-34) PG MCHC 34.6 (30-36) % RDW 15.2 H (11.6-14.8) % Plt Count 191 (150-400) X10^3/uL Neut % (Auto) 50.4 (50-75) % Lymph % (Auto) 24.5 L (25-40) % [place] % (Auto) 7.8 (3-14) % Eos % (Auto) 16.5 H (2-4) % Baso % (Auto) 0.8 (0-2) % Neut # (Auto) 3100 (0032-7162) /uL Lymph # (Auto) 1500 (9418-5855) /uL [place] # (Auto) 500 (0-900) /uL Eos # (Auto) 1000 H (0-450) /uL Baso # (Auto) 0 (0-100) /uL PT 12.0 (9.4-12.5) SECONDS INR 1.0 (0.9-1.3) Sodium 142 (137-145) mmol/L Potassium 3.6 (3.4-5.1) mmol/L Chloride 109 H (98-107) mmol/L Carbon Dioxide 25 (22-32) mmol/L BUN 11 (9-20) mg/dL Creatinine 0.91 (0.66-1.25) mg/dL Estimated GFR > 60 (>60) mL/min BUN/Creatinine Ratio 12.1 (6-22) Glucose 115 H (80-110) mg/dL Lactate 1.0 (0.7-2.1) mmol/L Calcium 8.4 (8.4-10.2) mg/dL Total Bilirubin 0.6 (0.2-1.3) mg/dL AST 29 (17-59) IU/L ALT 17 (<50) IU/L Alkaline Phosphatase 102 (38-126) U/L Troponin I < 0.012 (0.01-0.034) ng/mL NT-Pro-B Natriuret Pep 696 H (<450) pg/mL Total Protein 7.3 (6.3-8.2) g/dL Albumin 4.3 (3.5-5.0) g/dL Globulin 3.0 (1.7-4.1) g/dL Albumin/Globulin Ratio 1.4 (1.0-2.8) Chlamy pneumoniae PCR Not detected (Not Detect) Adenovirus (PCR) Not detected (Not Detect) B.parapertussis DNA PCR Not detected (Not Detecte) Coronavirus OC43 (PCR) Not detected (Not Detect) Coronavirus HKU1 (PCR) Not detected (Not Detect) Coronavirus 229E (PCR) Not detected (Not Detect) SARS-CoV-2 (PCR) Not detected (Not Detecte) Coronavirus NL63 (PCR) Not detected (Not Detect) Human Metapneumovir PCR Not detected (Not Detect) Influenza Type A (PCR) Not detected (Not Detect) Influenza Type B (PCR) Not detected (Not Detect) M. pneumoniae (PCR) Not detected (Not Detect) Parainfluenza 1 (PCR) Not detected (Not Detect) Parainfluenza 2 (PCR) Not detected (Not Detect) Parainfluenza 3 (PCR) Not detected (Not Detect) Parainfluenza 4 (PCR) Not detected (Not Detect) RSV (PCR) Not detected (Not Detect) Entero/Rhino (PCR) Not detected (Not Detect) MDM Narrative Medical decision making narrative: CC: Wheezing increasing over the last week Complicating co-morbidities: History of COPD, no history of prior coronary artery disease or congestive heart failure Data collected from: patient Social determinants of health that may influence the patients condition: Patient is 84 years old Medical records reviewed: ER note from March of 2024 is reviewed. At some point indicates that he had been on home oxygen and had seen cardiology in the past. Differential considered: COPD exacerbation, viral syndrome, bacterial pneumonia, congestive heart failure Exam documented above, pertinent findings include: 84-year-old gentleman alert and appropriate. Audible wheeze from across the room however full and symmetric air movement and appropriate oxygen saturations on room air. No lower extremity edema no JVD. Lab Test results independently reviewed as above. Pertinent findings: Respiratory panel Serology is unremarkable CBC is reassuring with no significant leukocytosis or anemia Chemistries are reassuring. Troponin is undetectable ProBNP is minimally elevated only Independently reviewed EKG: EKG shows sinus rhythm at a rate of 77 with a right bundle branch block. No acute ischemic changes Imaging studies independently reviewed: Chest x-ray does not show any signs of acute congestive heart failure Treatments: DuoNeb, Solu-Medrol, IV magnesium, he has given a spacer along with spacer instruction use Re-evaluations: Patient is feeling significantly improved, wheezes dramatically diminished Discussion: 84-year-old gentleman with increasing wheeze, dry cough but no fevers, chest pain palpitations. Workup is unremarkable for respiratory virus, bacterial pneumonia, congestive heart failure, acute coronary syndrome. He is responded nicely to treatment of his acute COPD. He still has a single dose of azithromycin left from his previous prescription. We will ask him to finish that, we will give him 5 additional days of prednisone to begin tomorrow. He was given a spacer to use with his albuterol and ipratropium inhalers. He will follow up with his primary care physician. There was no indication for additional imaging testing or hospitalization today. Given his normal oxygenation on room air He is safe for discharge Discharge Plan Departure Patient Disposition: Home Clinical Impression: COPD with exacerbation Instructions: DI for Chronic Obstructive Pulmonary Disease Activity Restrictions/Additional Instructions: Thank you for coming in today I did not find evidence of stroke, heart attack, congestive heart failure, viral pneumonia, bacterial pneumonia. We did do a panel looking for approximately 20 different viruses and was negative as well. You responded nicely to treatment for an acute COPD exacerbation. Our respiratory therapist gave you a spacer along with instructions to maximize benefits from using your albuterol and ipratropium inhalers In the emergency department you were given a nebulized treatment, IV steroids and IV magnesium. I would like you to complete an additional 5 days of steroid. The steroid prescription was electronically transmitted to [facility] Please do continue to use your inhalers as prescribed. Do make sure you complete the course of azithromycin that was started a couple of days ago I would recommend following up with the primary care doctor in 3-5 days to make sure the wheezing is clearly improving. If you find that you are worse in that timeframe please feel free to return to the ER Prescriptions: New prednisone 20 mg tablet 20 mg PO DAILY Qty: 5 0RF No Action gabapentin 100 mg capsule 100 mg PO BEDTIME docusate sodium 250 mg capsule 250 mg PO Q OTHER DAY fluticasone propionate 50 mcg/actuation spray,suspension 1 spray intranasal BID PRN (Reason: Allergy Symptoms) Rx Instructions: administer into each nostril triamcinolone acetonide 0.1 % ointment 1 applic topical DAILY omeprazole 20 mg Capsule,Delayed Release(Dr/Ec) 20 mg PO DAILY acetaminophen [Tylenol] 325 mg capsule 650 mg PO QID PRN (Reason: pain) Qty: 60 0RF albuterol sulfate 90 mcg/actuation HFA aerosol inhaler 2 puff inhalation Q4-6H PRN aspirin 81 mg tablet,delayed release (DR/EC) 81 mg PO DAILY cholecalciferol (vitamin D3) 25 mcg (1,000 unit) capsule 25 mcg PO DAILY Referrals: Kelli Valentine MD [Primary Care Provider] - Stand Alone Forms: Patient Portal/API
--- NOTE | 2024-05-29 09:24 | DI.RAD.S_ITS ---
PROCEDURE: XR CHEST 1V INDICATIONS: Shortness of breath TECHNIQUE: One view of the chest was acquired. COMPARISON: [facility], CR, XR CHEST 2V, 05/24/2024, 11:30. FINDINGS: Surgical changes and devices: None. Lungs and pleura: Lungs are clear. No pleural effusions or pneumothorax. Mediastinum: Mediastinal contours appear normal. Heart size is normal. Bones and chest wall: No suspicious bony lesions. Overlying soft tissues appear unremarkable. IMPRESSION: No acute cardiopulmonary pathology. Dictated by: Manolo Elias M.D. on 05/29/2024 at 10:11 Approved by: Manolo Elias M.D. on 05/29/2024 at 10:12
--- NOTE | 2024-05-29 09:44 | EKG_ITS ---
[place] [address] [address] [place] [id number] Test Date: 2024-05-29 Pat Name: Jatin Cruz Department: [facility] Room: Gender: Male Occupational Therapy Teacher: HUGH : 1940 Requested By: Order Number: [id number] Reading MD: Eddie Gloria Measurements Intervals [place] Rate: 77 P: 35 NC: 154 QRS: -19 QRSD: 144 T: 28 QT: 406 QTc: 459 Interpretive Statements Normal sinus rhythm Right bundle branch block Electronically Signed On 05-30-2024 12:19:30 PDT by Eddie Gloria
[2024-05-29] MEDS: ALBUTEROL/IPRATROPIUM 3 ML AMPUL INH (09:50)
[2024-05-29 09:56] LABS: Add Manual Diff / Slide Review NO; Basophils Absolute Auto 0 /uL (0-100); Basophils Percent Auto 0.8 % (0-2); Eosinophils Absolute Auto 1000 /uL (0-450); Eosinophils Percent Auto 16.5 % (2-4); Hematocrit 40.4 % (41-53); Lymphocytes Absolute Auto 1500 /uL (1100-4500); Lymphocytes Percent Auto 24.5 % (25-40); Mean Corpuscular HGB Conc 34.6 % (30-36); Mean Corpuscular Hemoglobin 28.7 PG (26-34); Mean Corpuscular Volume 83.1 fL (80-100); Monocytes Absolute Auto 500 /uL (0-900); Monocytes Percent Auto 7.8 % (3-14); Neutrophils Absolute Auto 3100 /uL (1500-7000); Neutrophils Percent Auto 50.4 % (50-75); Platelet Count 191 X10^3/uL (150-400); Red Blood Cell Count 4.86 X10^6/uL (4.5-5.9); Red Cell Distribution Width 15.2 % (11.6-14.8); White Blood Cell Count 6.2 X10^3/uL (4.5-11.0)
[2024-05-29] MEDS: methylPREDNISolone 125 MG/2 ML VIAL IV (10:01)
[2024-05-29] MEDS: MAGNESIUM SULFATE 2 GM/50 ML PIGGYBACK IV (10:01)
[2024-05-29 10:04] LABS: Alanine Aminotransferase 17 IU/L (<50); Albumin 4.3 g/dL (3.5-5.0); Albumin Globulin Ratio 1.4 (1.0-2.8); Alkaline Phosphatase 102 U/L (38-126); Aspartate Aminotransferase 29 IU/L (17-59); BUN Creatinine Ratio 12.1 (6-22); Bilirubin Total 0.6 mg/dL (0.2-1.3); Blood Urea Nitrogen 11 mg/dL (9-20); Calcium 8.4 mg/dL (8.4-10.2); Carbon Dioxide 25 mmol/L (22-32); Chloride 109 mmol/L (98-107); Estimated Glomerular Filt Rate > 60 mL/min (>60); Glucose 115 mg/dL (80-110); HEMOLYSIS < 15 (0-50); Potassium 3.6 mmol/L (3.4-5.1); Sodium 142 mmol/L (137-145); Total Protein 7.3 g/dL (6.3-8.2)
[2024-05-29 10:16] LABS: NT-proBNP (BNP-Adult 18+) 696 pg/mL (<450); Troponin I < 0.012 ng/mL (0.01-0.034)
[2024-05-29 10:47] LABS: Adenovirus Not Detected (Not Detect); B. parapertussis Not Detected (Not Detecte); Bordetella pertussis Not Detected (Not Detect); Chlamydophila pneumoniae Not Detected (Not Detect); Coronavirus 229E Not Detected (Not Detect); Coronavirus HKU1 Not Detected (Not Detect); Coronavirus NL 63 Not Detected (Not Detect); Coronavirus OC43 Not Detected (Not Detect); Human Metapneumovirus Not Detected (Not Detect); Human Rhinovirus/Enterovirus Not Detected (Not Detect); Influenza A Not Detected (Not Detect); Influenza B Not Detected (Not Detect); Mycoplasma pneumoniae Not Detected (Not Detect); Parainfluenza Virus 1 Not Detected (Not Detect); Parainfluenza Virus 2 Not Detected (Not Detect); Parainfluenza Virus 3 Not Detected (Not Detect); Parainfluenza Virus 4 Not Detected (Not Detect); Respiratory Syncytial Virus Not Detected (Not Detect); SARS- CoV-2 Not Detected (Not Detecte)
== END 2024-05-29 11:20 | disposition home or self-care (01) ==
PROVIDERS: Emergency Provider Emergency Medicine; PCP Family Medicine
DX: J44.1 Chronic obstructive pulmonary disease with (acute) exacerbation (principal); I45.10 Unspecified right bundle-branch block; Z11.52 Encounter for screening for COVID-19
CPT/HCPCS: 36415; 71045; 80053; 83605; 83880; 84484; 85025; 85610; 87633; 93005; 94640; 96361; 96374; 99284; J2919; J3475

== ENCOUNTER → 2024-09-05 11:16 | Outpatient (CLI) | payer MEDICARE, OTHER, SELFPAY ==
--- NOTE | 2024-09-05 11:20 | DI.RAD.S_ITS ---
PROCEDURE: XR WRIST RT MIN 3V INDICATIONS: WRIST PAIN TECHNIQUE: Four views of the wrist were acquired. COMPARISON: None. FINDINGS: Bones: There are no osseous abnormalities Joints: Severe 1st CMC and MCP degenerative change noted. There is moderate degenerative change distal radial ulnar joint. Mild STT degeneration also noted. Soft tissues: No soft tissue abnormality. IMPRESSION: Degeneration Dictated by: Abdullahi Bryant M.D. on 09/06/2024 at 9:50 Approved by: Abdullahi Bryant M.D. on 09/06/2024 at 9:51
--- NOTE | 2024-09-05 11:21 | DI.RAD.S_ITS ---
PROCEDURE: XR SHOULDER RT MIN 2V INDICATIONS: SHOULDDER PAIN TECHNIQUE: Three views of the shoulder were acquired. COMPARISON: [facility], CR, XR SHOULDER LT MIN 2V, 12/10/2020, 10:33. FINDINGS: Bones: Prominent enthesophyte projects from the inferior acromion Acromioclavicular and glenohumeral joints: Normal in width and alignment without arthritic change Soft tissues: No soft tissue swelling, calcification or mass. IMPRESSION: Prominent enthesophyte projecting the inferior acromion which could predispose extrinsic rotator cuff impingement. Dictated by: Abdullahi Bryant M.D. on 09/06/2024 at 9:55 Approved by: Abdullahi Bryant M.D. on 09/06/2024 at 9:56
--- NOTE | 2024-09-05 11:21 | DI.RAD.S_ITS ---
PROCEDURE: XR CERVICAL SPINE 2V OR 3V INDICATIONS: BACK PAIN TECHNIQUE: Five views of the cervical spine were acquired. COMPARISON: [facility], CR, XR CERVICAL SPINE 2V OR 3V, 09/08/2019, 11:34. FINDINGS: Cervical spine curvature and alignment: Normal. Bones: No osseous abnormalities in the cervical spine. Mild T1 and T2 compression fractures are poorly visualized Disc spaces: Moderate C5-6 and mild C6-7 C7-T1 degenerative disc disease noted. There is severe bilateral C3-4 through C7-T1 degenerative facet disease. Intervertebral foramen: Grossly normal in width. Soft tissues: No soft tissue swelling, calcification or mass. IMPRESSION: Degeneration. Dictated by: Abdullahi Bryant M.D. on 09/06/2024 at 9:44 Approved by: Abdullahi Bryant M.D. on 09/06/2024 at 9:45
== END ==
PROVIDERS: PCP Family Medicine; Referring Provider Family Medicine; Visit Provider Family Medicine
DX: M50.322 Other cervical disc degeneration at C5-C6 level (principal); M47.812 Spondylosis without myelopathy or radiculopathy, cervical region; M25.531 Pain in right wrist; M25.511 Pain in right shoulder
CPT/HCPCS: 72040; 73030; 73110

== ENCOUNTER → 2025-02-01 09:29 | Outpatient (CLI) | payer MEDICARE, OTHER, SELFPAY | PROVIDERS: PCP Family Medicine; Referring Provider Family Medicine; Visit Provider Family Medicine | DX: R42 Dizziness and giddiness (principal); R53.1 Weakness | CPT/HCPCS: 93242; 93244 ==